=== PATIENT | female | born 1985 | race Caucasian/White ===

== ENCOUNTER 2016-04-24 07:09 | Emergency (ER) | payer OTHER ==
[2016-04-24 07:25] VITALS: BP 116/64
--- NOTE | 2016-04-24 07:29 | UC ---
Respiratory Complaint HPI - HPI Summary HPI Summary: chest congestion x 3 days , + nasal congestion , cough, no fever, no chills - History of Current Complaint Chief Complaint: UCGeneralIllness Stated Complaint: CHEST/SINUS CONGESTION Time Seen by Provider: 04/24/16 07:12 Hx Obtained From: Patient Hx Last Menstrual Period: Depo ?: No Onset/Duration: Gradual Onset, Lasting Days - 3, Still Present Timing: Constant Severity Initially: Moderate Severity Currently: Moderate Character: Cough: Nonproductive Aggravating Factors: Exertion, Deep Breaths Alleviating Factors: Nothing Associated Signs And Symptoms: Positive: URI, Nasal Congestion. Negative: Fever , Chills, Calf Pain - Allergies/Home Medications Allergies/Adverse Reactions: Allergies Allergy/AdvReac Type Severity Reaction Status Date / Time Erythromycin Allergy Severe N/V Verified 12/05/15 09:57 PMH/Surg Hx/FS Hx/Imm Hx Endocrine History Of: Denies: Diabetes, Thyroid Disease Cardiovascular History Of: Denies: Cardiac Disorders, Hypertension Respiratory History Of: Denies: COPD, Asthma GI/ History Of: Denies: Ulcer - Surgical History Surgical History: Yes Surgery Procedure, Year, and Place: LEEP - Family History Known Family History: Positive: Hypertension - Social History Alcohol Use: Occasionally Substance Use Type: None Smoking Status (MU): Former Smoker Type: Cigarettes Amount Used/How Often: 1 ppd Length of Time of Smoking/Using Tobacco: 10 years Have You Smoked in the Last Year: Yes When Did the Patient Quit Smoking/Using Tobacco: OCT 2015 Review of Systems Constitutional: Negative Skin: Negative Eyes: Negative ENT: Nasal Discharge Respiratory: Cough Cardiovascular: Negative Gastrointestinal: Negative Genitourinary: Negative All Other Systems Reviewed And Are Negative: Yes Physical Exam Triage Information Reviewed: Yes Appearance: Well-Appearing, No Pain Distress, Well-Nourished Vital Signs: Initial Vital Signs Temp 98.7 F 04/24/16 07:14 Pulse 66 04/24/16 07:14 Resp 16 04/24/16 07:14 BP 116/64 04/24/16 07:14 Pulse Ox 99 04/24/16 07:14 Vital Signs Reviewed: Yes Eye Exam: Normal Eyes: Positive: Conjunctiva Clear ENT: Positive: Normal ENT inspection, Hearing grossly normal, Pharyngeal erythema, Nasal congestion, Nasal drainage, TMs normal Neck: Positive: Supple, Nontender, No Lymphadenopathy Respiratory: Positive: Chest non-tender, Lungs clear, Normal breath sounds, No respiratory distress Cardiovascular: Positive: RRR, No Murmur, Pulses Normal Abdominal Exam: Normal Skin Exam: Normal UC Diagnostic Evaluation - Laboratory O2 Sat by Pulse Oximetry: 99 Respiratory Course/Dx - Differential Dx/Diagnosis Provider Diagnoses: URI Discharge - Discharge Plan Condition: Stable Disposition: HOME Patient Education Materials: Upper Respiratory Infection (ED) Referrals: Non Staff,Doctor [Primary Care Provider] - If Needed
== END 2016-04-24 07:40 | disposition home or self-care (01) ==
LOC: UCCORT 07:09
DX: J06.9 Acute upper respiratory infection, unspecified (principal); Z88.1 Allergy status to other antibiotic agents; Z87.891 Personal history of nicotine dependence
CPT/HCPCS: 99211; G0463

== ENCOUNTER 2016-04-27 07:07 | Emergency (ER) | payer OTHER ==
--- NOTE | 2016-04-27 07:19 | UC ---
Throat Pain/Nasal Benito HPI - HPI Summary HPI Summary: The patient comes in today for: 1. Sore throat: Onset: 5 days ago (nasal stuffiness) and sore throat x 1 day. Palliative/provocative: Gargling of warm salt water. Quality: Sore Region: Throat. Severity: 08/27 Time: Constant. Associated symptoms: Fever: None. Rhinitis: None Body aches: Present Cough: None. * - History of Current Complaint Stated Complaint: SORE THROAT,ACHY Time Seen by Provider: 04/27/16 07:11 Hx Obtained From: Patient Hx Last Menstrual Period: DEPO ?: No - Allergies/Home Medications Allergies/Adverse Reactions: Allergies Allergy/AdvReac Type Severity Reaction Status Date / Time Erythromycin Allergy Severe N/V Verified 04/27/16 07:31 PMH/Surg Hx/FS Hx/Imm Hx Previously Healthy: Yes Endocrine History Of: Denies: Diabetes, Thyroid Disease, Hyperthyroidism, Hypothyroidism, Dyslipidemia Cardiovascular History Of: Denies: Cardiac Disorders, Hypertension, Pacemaker/ICD, Myocardial Infarction , Congestive Heart Failure, Atrial Fibrillation, Deep Vein Thrombosis, Bleeding Disorders Respiratory History Of: Denies: COPD, Asthma, Bronchitis, Pneumonia, Pulmonary Embolism GI/ History Of: Denies: Gastroesophageal Reflux, Ulcer, Gastrointestinal Bleed, Gall Bladder Disease, Kidney Stones, Diverticulitis, Renal Disease, Urosepsis Neurological History Of: Denies: TIA, CVA, Dementia, Seizures, Migraine Psychological History Of: Denies: Anxiety, Depression, Bipolar Disorder, Schizophrenia, Post Traumatic Stress Disorder Cancer History Of: Denies: Lung Cancer, Colorectal Cancer, Breast Cancer, Prostate Cancer, Cervical Cancer Other History Of: Negative For: HIV, Hepatitis B, Hepatitis C, Anticoagulant Therapy - Surgical History Surgical History: Yes Surgery Procedure, Year, and Place: LEEP - Family History Known Family History: Positive: Hypertension Negative: Cardiac Disease - Social History Occupation: Employed Full-time Alcohol Use: Occasionally Substance Use Type: None Smoking Status (MU): Former Smoker Type: Cigarettes Amount Used/How Often: 1 ppd Length of Time of Smoking/Using Tobacco: 10 years Have You Smoked in the Last Year: Yes When Did the Patient Quit Smoking/Using Tobacco: OCT 2015 Review of Systems Constitutional: Negative Skin: Negative Eyes: Negative ENT: Sore Throat, Ear Ache - They are "popping a lot." Respiratory: Negative Cardiovascular: Negative Gastrointestinal: Negative Genitourinary: Negative All Other Systems Reviewed And Are Negative: Yes Physical Exam Triage Information Reviewed: Yes Appearance: Well-Appearing, No Pain Distress, Well-Nourished Vital Signs Reviewed: Yes Eyes: Positive: Conjunctiva Clear, Discharge ENT: Positive: Hearing grossly normal, Other: - No ulcerations seen in the posterior pharynx.. Negative: Pharyngeal erythema, Nasal congestion, Nasal drainage, TM bulging, TM dull, TM red, Tonsillar swelling, Tonsillar exudate Dental: Negative: Gross Decay/Caries @, Dental Fracture @ Neck: Positive: Supple, Nontender, No Lymphadenopathy. Negative: Nuchal Rigidity Respiratory: Positive: Lungs clear, No respiratory distress, No accessory muscle use. Negative: Crackles, Wheezing Cardiovascular: Positive: RRR, No Murmur Abdomen Description: Positive: Nontender, No Organomegaly, Soft. Negative: Distended, Guarding Musculoskeletal: Positive: Strength Intact, ROM Intact, No Edema Neurological: Positive: Alert, Muscle Tone Normal Psychological: Positive: Age Appropriate Behavior, Consolable Skin: Negative: rashes, breakdown Diagnostics - Laboratory Diagnostic Studies Completed/Ordered: Strep test: (-) Throat Pain/Nasal Course/Dx - Course Assessment/Plan: Patient was told of the negative strep test and her treatment options. However, treatment options were mentioned. She only wanted treatment with OTC medications. - Differential Dx/Diagnosis Provider Diagnoses: Viral pharyngitis Discharge - Discharge Plan Condition: Stable Disposition: HOME Patient Education Materials: Pharyngitis (ED) Referrals: Non Staff,Doctor [Primary Care Provider] - (Please see your primary care provider in about a week to see how well you are doing. If you get worse, please be seen sooner.)
[2016-04-27 07:59] VITALS: BP 107/63
== END 2016-04-27 08:05 | disposition home or self-care (01) ==
LOC: UCCORT 07:07
DX: J02.9 Acute pharyngitis, unspecified (principal); Z87.891 Personal history of nicotine dependence; Z88.1 Allergy status to other antibiotic agents
CPT/HCPCS: 87651; 99211; G0463

== ENCOUNTER 2016-07-22 15:29 | Emergency (ER) | payer OTHER ==
[2016-07-22 15:44] VITALS: BP 109/60
--- NOTE | 2016-07-22 16:52 | UC ---
Shoulder Pain HPI - HPI Summary HPI Summary: PATIENT PRESENTS TO WITH CC OF RIGHT SHOULDER PAIN WHICH RADIATES UP THE RIGHT SIDE OF THE NECK. 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 SHE NOTES TO TWISTING AND PULLING THE MUSCLES OVER THE RIGHT SHOULDER. SHE HAS INJURED THE AREA BEFORE AND NOTE TO PREVIOUS INCIDENCES OF MUSCLE STRAINS AND BACK PAIN. DENIES MIDLINE CERVICAL TENDERNESS. PAIN WAS WORST AFTER AWAKING FROM A [employer] AND SHE NOTES TO LIMITED MOVEMENT OF THE SHOULDER AND NECK D/T TIGHTNESS AND PAIN. DENIES NUMBNESS, TINGLING, COLOR OR TEMPERATURE CHANGES. PATIENT IS ON THE DEPO SHOT, BUT DENIES OTHER MEDICATIONS. RECENTLY QUIT SMOKING. DENIES HISTORY OF HERNIATED DISCS OR BACK SURGERIES. - History of Current Complaint Chief Complaint: UCBackPain Stated Complaint: BACK PAIN Time Seen by Provider: 07/22/16 16:29 Hx Obtained From: Patient Hx Last Menstrual Period: depo ?: No Onset/Duration: Sudden Onset Timing: Constant Severity Initially: Moderate Severity Currently: Moderate Location Of Pain: Is Diffuse - RIGHT SHOULDER RADIATING TO THE RIGHT SIDE OF THE NECK Pain Intensity: 5 Pain Scale Used: 0-10 Numeric Character: Aching, Throbbing, Spasmodic, Stiffness Aggravating Factor(s): Movement, Lifting, Internal Rotation, External Rotation Alleviating Factor(s): Rest Associated Signs And Symptoms: Positive: Negative Related History: Dominant Hand Right - Risk Factors Non-Orthopedic Risk Factor: Negative DVT Risk Factors: Negative Septic Arthritis Risk Factor: Negative - Allergies/Home Medications Allergies/Adverse Reactions: Allergies Allergy/AdvReac Type Severity Reaction Status Date / Time Erythromycin Allergy Severe N/V Verified 07/22/16 15:49 PMH/Surg Hx/FS Hx/Imm Hx Previously Healthy: Yes Other History Of: Negative For: HIV, Hepatitis B, Hepatitis C, Anticoagulant Therapy - Surgical History Surgical History: Yes Surgery Procedure, Year, and Place: LEEP - Family History Known Family History: Positive: Hypertension Negative: Cardiac Disease - Social History Occupation: Employed Full-time Lives: With Family Alcohol Use: Occasionally Substance Use Type: None Smoking Status (MU): Former Smoker Type: Cigarettes Amount Used/How Often: 1 ppd Length of Time of Smoking/Using Tobacco: 10 years Have You Smoked in the Last Year: Yes When Did the Patient Quit Smoking/Using Tobacco: OCT 2015 Review of Systems Constitutional: Negative Skin: Negative Respiratory: Negative Cardiovascular: Negative Genitourinary: Negative Motor: Decreased ROM Neurovascular: Negative Musculoskeletal: Arthralgia - RIGHT SHOULDER PAIN Neurological: Negative Psychological: Negative All Other Systems Reviewed And Are Negative: Yes Physical Exam Triage Information Reviewed: Yes Appearance: Well-Appearing, No Pain Distress, Well-Nourished Vital Signs: Initial Vital Signs Temp 99.0 F 07/22/16 15:41 Pulse 56 07/22/16 15:41 Resp 18 07/22/16 15:41 BP 109/60 07/22/16 15:41 Pulse Ox 99 07/22/16 15:41 Eye Exam: Normal Eyes: Positive: Conjunctiva Clear Neck exam: Normal Neck: Positive: Supple, Nontender, No Lymphadenopathy Respiratory Exam: Normal Respiratory: Positive: Chest non-tender, Lungs clear Cardiovascular Exam: Normal Cardiovascular: Positive: RRR Musculoskeletal Exam: Normal Musculoskeletal: Positive: No Edema, ROM Limited @ - PAIN WITH RIGHT SHOULDER ABDUCTION Neurological Exam: Normal Neurological: Positive: Alert, Muscle Tone Normal Psychological: Positive: Normal Response To Family Skin Exam: Normal Shoulder Course/Dx - Course Course Of Treatment: D/T HISTORY OF INJURY AND NO MIDLINE CERVICAL TENDERNESS, NO XRAY WAS COMPLETED. PATIENT NOTES TO MUSCLE PAIN IN THE RIGHT SHOULDER BLADE WHICH RADIATES TO THE RIGHT SIDE OF THE BASE OF THE NECK. DENIES OTHER PAIN. PATIENT HAS A HISTORY OF MUSCLE ACHES AND SPASMS. FLEXIRIL GIVEN FOR MUSCLE SPASMS, ENCOURAGED IBUPROFEN 600MG THREE TIMES DAILY AND MOIST HEAT TO THE AREA. PATIENT WILL RETURN IF SYMPTOMS WORSEN. NOTE GIVEN FOR WOK. - Differential Dx/Diagnosis Differential Diagnosis/HQI/PQRI: Fracture (Closed), Fracture (Open), Sprain, Strain Provider Diagnoses: RIGHT SHOULDER STRAIN Discharge - Discharge Plan Condition: Stable Disposition: HOME Prescriptions: Cyclobenzaprine TAB* [Flexeril TAB*] 10 mg PO BID PRN #10 tab MDD 2 PRN Reason: Pain Patient Education Materials: Muscle Strain (ED) Forms: *Work Release Referrals: No Primary Care Phys,NOPCP [Primary Care Provider] - Additional Instructions: TAKE 600MG THREE TIMES DAILY IBUPROFEN MOIST HEAT TO THE AREA SEVERAL TIMES PER DAY MASSAGE HOT BATHS FLEXIRIL NEEDED FOR MUSCLE SPASMS
== END 2016-07-22 16:50 | disposition home or self-care (01) ==
LOC: UCEAST 15:29
DX: S46.911A Strain of unspecified muscle, fascia and tendon at shoulder and upper arm level, right arm, initial encounter (principal); X50.3XXA Overexertion from repetitive movements, initial encounter; X50.0XXA Overexertion from strenuous movement or load, initial encounter; Y93.H2 Activity, gardening and landscaping; Y92.9 Unspecified place or not applicable; Y99.9 Unspecified external cause status; Z87.891 Personal history of nicotine dependence
CPT/HCPCS: 99212; G0463

== ENCOUNTER 2016-10-29 10:48 | Day surgery (SDC) | payer OTHER ==
--- NOTE | 2016-10-23 22:05 | HP ---
PREOPERATIVE HISTORY AND PHYSICAL: DATE OF ADMISSION/SURGERY: 10/29/16 [facility] DATE OF OFFICE VISIT: 10/23/16 ATTENDING SURGEON: Dr. Filippo Rodriguez * (DICTATED BY HIREN BANUELOS) PROCEDURE: Right shoulder arthroscopic labral repair, possible subpectoral biceps tenodesis. CHIEF COMPLAINT: Right shoulder pain. HISTORY OF PRESENT ILLNESS: Zenaida is a 31-year-old female, who presents to the clinic for right shoulder pain and instability for several years. She states she has dislocated it over 20 times. She has failed conservative measures and has therefore agreed to undergo a right shoulder arthroscopic labral repair, possible subpectoral biceps tenodesis with Dr. Barkley on 10/29/16. PAST MEDICAL HISTORY: Denies current problems. PAST SURGICAL HISTORY: LEEP and breast implants. Denies prior complications with anesthesia. MEDICATIONS: Depo-Provera 150 mg/mL every 3 months. ALLERGIES: ERYTHROMYCIN. FAMILY HISTORY: Diabetes, hypertension, and cancer. Denies family history of DVT or PE. SOCIAL HISTORY: The patient lives alone. 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 She is a former smoker. She quit in October of 2015. She reports occasional alcohol consumption. She denies illegal drug use. REVIEW OF SYSTEMS: General: Negative for fevers, chills, night sweats. No known anesthesia problems. HEENT: Negative for headache, lightheadedness, or syncopal episodes. Integumentary: Negative for abrasions, lesions, or open wounds. Cardiothoracic: Negative for chest pain, palpitations, or hypertension. Pulmonary: Negative for shortness of breath with exertion, chronic cough, or COPD. GI: Negative for nausea, vomiting, diarrhea, constipation, or GERD. : Negative for nocturia, history of UTIs, or kidney problems. Musculoskeletal: Positive for current complaint. Neuro: Negative for numbness, tingling, history of seizure, stroke, or epilepsy. Endocrine: Negative for diabetes or thyroid issues. Heme: Negative for easy bruising, history of bleeding disorder, or history of DVT or PE. Infectious Disease: Negative for history of MRSA, hep C, or HIV. PHYSICAL EXAMINATION GENERAL: Well-developed, well-nourished, 31-year-old female, in no acute distress. Alert and oriented x3 with appropriate mood and affect. VITAL SIGNS: Height 64, weight , pulse 86, blood pressure 114/76, respiratory rate 16, temperature 98, BMI 27.6. HEENT: Normocephalic, atraumatic. PERRLA. NECK: Supple. Throat clear. PULMONARY: Lungs clear to auscultation bilaterally. No wheezing, rhonchi, or rales. CARDIO: Regular rate and rhythm, S1 and S2. No murmurs, gallops, or rubs. No edema. ABDOMEN: Positive bowel sounds, soft, nontender. NEURO: Alert and oriented x3. Cranial nerves grossly intact. Sensation is intact to light touch. MUSCULOSKELETAL: Right upper extremity: Skin is intact. No warmth or erythema , nontender to palpation. Forward flexion and abduction to 180, external rotation to 65, internal rotation to T8. +5/5 strength on rotator cuff testing. Positive apprehension, relocation test. +2 anterior shift with guarding. +2 radial pulses. Sensation intact to light touch distally. DIAGNOSTIC STUDIES: MR arthrogram of the right shoulder revealed an absent anterior labrum. The rotator cuff is intact. IMPRESSION: Right shoulder labral tear. PLAN: The patient is scheduled to undergo a right shoulder arthroscopic labral repair, possible subpectoral biceps tenodesis with Dr. Rodriguez on 10/29/16. She will return to the office 10 to 14 days postop for followup and suture removal. Percocet will be used for a postoperative pain management and Keflex for antibiotic prophylaxis. HIREN BANUELOS [id number]/[facility] #: [id number] [facility]
[~2016-10-29 10:48] MED LIST: Buffered Lidocaine 0.9% SYRIN* 5 ML/SYR SYRINGE INTRADERM ONE; Famotidine IV* 10 MG/ML 2 ML (20 mg) IV ONE; Morphine INJ* 2 MG/ML 1 ML CARPUJECT IV PRN; PROCHLORPERAZINE INJ 5 MG/ML 2 ML VIAL IV PRN; Scopolamine 1.5 mg* PATCH TRANSDERM PRN; fentaNYL* 50 MCG/ML 2 ML VIAL (100 MCG VIAL) IV PRN; oxyCODONE/Acetamin 5/325 MG* TAB PO PRN
[2016-10-29] MEDS ORDERED: Midazolam* 1 MG/ML 5 ML VIAL (5 MG) ONE (10:56)
[2016-10-29] MEDS ORDERED: KETAMINE HCL* 50 MG/ML 10 ML VIAL ONE (10:56)
[2016-10-29] MEDS ORDERED: fentaNYL* 50 MCG/ML 2 ML VIAL (100 MCG VIAL) ONE ×2 (10:56→14:37)
[2016-10-29] MEDS ORDERED: Famotidine IV* 10 MG/ML 2 ML (20 mg) ONE (11:09)
[2016-10-29] MEDS ORDERED: ceFAZolin 2 GM PREMIX (*) 50 ML IVPB ONE (11:09)
[2016-10-29] MEDS ORDERED: Bupivacaine 0.25% SDV* 30 ML ONE ×2 (12:42→13:18)
[2016-10-29] MEDS ORDERED: methylPREDNISolone ACETATE 80* 80 MG/ML 1 ML VIAL ONE (12:43)
[2016-10-29] MEDS ORDERED: Dexamethasone IV* 4 MG/ML 1 ML (4 MG) ONE (13:51)
[2016-10-29] MEDS ORDERED: EPHEDrine (Pressors)* 50 MG/ML VIAL ONE (13:51)
[2016-10-29] MEDS ORDERED: Propofol* 10 MG/ML 20 ML BTL IV PUSH ONE (13:51)
[2016-10-29] MEDS ORDERED: Ketorolac INJ* 30 MG/ML 1 ML VIAL ONE (13:51)
[2016-10-29] MEDS ORDERED: Ondansetron INJ* 2 MG/ML VIAL ONE (13:51)
[2016-10-29] MEDS ORDERED: Lidocaine 2% PF * 5 ML VIAL ONE (13:51)
[2016-10-29] MEDS ORDERED: oxyCODONE/Acetamin 5/325 MG* TAB ONE (15:44)
[2016-10-29 16:15] VITALS: BP 127/66
--- NOTE | 2016-10-30 11:28 | OP ---
CC: PCP, Coty Fontanez NP * DATE OF OPERATION: 10/29/16 - [facility] DATE OF : 83 ATTENDING SURGEON: Filippo Rodriguez MD. SKEIN YARN DRIER: HIREN Eisenberg. Repair Electric Motor Assembler was needed for the entirety of the case to help with positioning, retraction, and utilized throughout all portions of the case. ANESTHESIOLOGIST: Dr. Juan C Gutierrez. ANESTHESIA: General interscalene block. PRE-OP DIAGNOSIS: Right shoulder instability. POST-OP DIAGNOSIS: Right shoulder instability. OPERATIVE PROCEDURE: Right shoulder arthroscopy with: 1. Extensive glenohumeral debridement including chondroplasty as well as debridement of the rotator cuff. 2. Removal of loose body x3 greater than 5 mm. 3. Anterior labral repair. 4. Subpectoral biceps tenodesis. IMPLANTS: Four 2.9 Bioraptors and one 2.8 mm Q-Fix. INDICATIONS: Zenaida Wilson is a 31-year-old female who has had reportedly 20 dislocations at least. She has failed conservative management. She did not seek medical treatment and has persistent instability. 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 She has pain with this now. Risks and benefits were discussed at length, included but not limited to bleeding, infection, damage to nerves, vessels, surrounding structures, wound nonhealing, persistent pain, need for further surgery, scaring, stiffness, incomplete relief of symptoms, need for further surgery, failure of the repair with recurrent instability, and risk of DVT. She is well aware that she has dislocated so many times and it is hard to say how well she would do from this simple arthroscopic procedure. We also discussed the fact that her arthrogram demonstrates that the anterior labrum was completely displaced and almost nonexistent superiorly. She verbalized understanding. DESCRIPTION OF PROCEDURE: The patient was greeted in the preoperative area by the attending surgeon. Correct extremity was marked, consent was confirmed. The patient then underwent interscalene nerve block with the anesthesiologist which she tolerated without difficulty after which the patient was brought back to the operating suite where she was placed in the supine position on the operating room tablet and then underwent general anesthesia with LMA intubation. The patient was then positioned in a left lateral decubitus position. She was secured with a peg board as well as a small axillary roll that was taped. All bony prominences were padded. The right arm was draped unsterile with 10 pounds of traction. The right shoulder was prepped and draped in the usual sterile fashion beginning with chlorhexidine soap, scrub, and alcohol wipe and final prep with ChloraPrep. After appropriate surgical pause indicating site, side, procedure, and administration of antibiotics a posterolateral portal was made using an 11 blade. Scope was introduced into the joint and the joint was examined. There was abundant hyperemia and inflammation of the biceps, had evidence of subluxation of the superior labrum. The labrum was missing from the 1 o'clock to the 6 o'clock position. It was completely not apparent. The shoulder was sitting subluxed. There was a moderate Hill-Sachs lesion. There were multiple loose bodies, at least 3 of them almost 1 cm. These were sitting in the inferior recess. The subscapularis was completely exposed. The capsule had been stretched significantly anteriorly. The posterior labrum had mild unstable fraying. The undersurface of the supraspinatus was intact with mild fraying. The subscapularis had partial thickness tearing. The lower anterior portal was made first using an 18 gauge needle for localization, and then an 8 mm cannula was placed, then a second cannula was placed more superiorly in the interval. At this point the biceps was evaluated and the superior labrum was also torn and decision was made to tenotomize this and do a tenodesis. This was then sharply tenotomized using scissors. The shaver was brought into to help debride back a small amount of fraying from the posterior labrum as well as the subscapularis. At this point there were multiple loose bodies that are identified. These were then removed with graspers as well as emmanuel. When the vast majority were removed attention was directed to the labrum. Also of note the anterior recess was intact. There were grade 1 to 2 changes of the glenoid with mild fraying. These were then debrided back using the shaver for chondroplasty. The Hill-Sachs lesion was identified. It was a large lesion, but it was not very deep. There were grade 4 changes at at the Hill-Sachs lesion. Once the debridement was complete, attention was directed to the labrum. The labrum was prepared in the usual fashion with red ball rasp, the shaver to help create a bony bleeding edge at the glenoid. The soft tissues were carefully evaluated. A 70 degree scope was used to help visualize. Most of the labrum was nonexistent. Some capsule was scarred into what may have been labrum very inferiorly. Care was taken to try to be able to re- create that and bring that back to the glenoid. Although it would not re-create the entire anterior aspect of the labrum, it was able to be reapproximated to about the 3 o 'clock position. At this point after the labrum had been prepared and the capsule had been rasped, anchors began to be placed. Beginning at the 5:30 position the anchor was placed with excellent purchase. The sutures were passed using the passing device in a horizontal mattress fashion with care to grab the capsule as well as the labrum which was somewhat difficult due to this being completely displaced. Once this was brought back this was then tied down using arthroscopic knot tying which did help reapproximate the most inferior portion of the labrum. This also allowed for an inferior to superior capsular shift. A second anchor was placed at the 4:30 position and in a similar fashion horizontal mattress configuration; this again helped restore some of the capsulolabral junction. The labrum did not look normal by any means, it was a very inflamed, irritated tissue. At this point, a 3rd anchor was placed in the 3:30 position, passed in a simple configuration. At this point, the capsule and the labrum was much more diminutive, but it still helped restore some of the shift and then a last anchor was placed around 2:30 to try to grab as much of the capsule as possible. This was also quite diminutive. After the anchors were placed, the shoulder was examined and it was found to sit more centrally located. It helped restore as normal anatomic alignment as she could have given her poor structures. At this point final images were obtained. All fluid and debris were removed from the joint. Attention was directed to the biceps. The bed was airplaned to the right side. The anterior aspect of the shoulder was reprepped again using ChloraPrep. A 15 blade was used to make an incision in line with the biceps accompanying the inferior two-thirds of the pec. The soft tissues were carefully dissected using Metzenbaum. Electrocautery was used to maintain hemostasis. The fascia was identified. The remainder of the dissection was done bluntly. The pec was elevated superiorly with a [place] blade and the biceps groove was palpated. A small cristobal in the biceps facia was then made and the biceps was brought through the wound. There was abundant synovitis that was present. At this point, the groove was prepared in the usual fashion beginning with electrocautery, ball rasp, as well as osteotome to allow for good bony bleeding bed. A Q-Fix anchor drill guide was used and drilled unicortically. The Q-Fix was deployed with excellent purchase. Sutures were passed through the biceps approximately 1 cm proximal to the musculotendinous junction. The excess stump then was excised and then the biceps was shuttled back to the wound and then tied down. The wounds were copiously irrigated with sterile saline. Portals were closed with 3-0 nylon. The anterior wound was closed in layers with 2-0 Vicryl and 3-0 Monocryl. Sterile dressings were applied. The anterior wound was injected with 0.25% Marcaine plain approximately 20 cc. Dressings, cryo cuff, and UltraSling were then applied. She was awoken from anesthesia and transferred to PACU in stable condition. POSTOPERATIVE PLAN: She will be nonweightbearing. She will be in a sling for approximately 6 weeks. She will be allowed range of motion with a therapist beginning at 4 weeks. She will be discharged with pain mediations as well as antibiotics. DVT prophylaxis was considered but deferred due to no previous personal or family history. I will see the patient back in 10 to 14 days. [id number]/[facility] #: [id number] NOHEMI
[2016-11-01] MEDS ORDERED: Scopolomine PATCH Remove* 1 NOTE MISC PATCH OFF ONE (05:49)
== END 2016-10-29 16:34 | disposition home or self-care (01) ==
LOC: OREAST 10:48
PROVIDERS: ATTEND Orthopaedic Surgery
DX: M25.311 Other instability, right shoulder (principal); M75.81 Other shoulder lesions, right shoulder; G89.18 Other acute postprocedural pain; Z88.1 Allergy status to other antibiotic agents; Z87.891 Personal history of nicotine dependence
CPT/HCPCS: 81025; A9270-GY; C1776; J0690; J1040; J1100; J1885; J2250; J2405; J2704; J3010

== ENCOUNTER 2017-11-02 19:14 | Emergency (ER) | payer OTHER ==
[2017-11-02 19:48] LABS: ABS Basophils 0.1 10^3/ul (0-0.2); ABS Eosinophils 0 10^3/ul (0-0.6); ABS Monocytes 0.4 10^3/ul (0-0.8); ABS Neutrophils 3.3 10^3/ul (1.5-7.7); ABS Nucleated RBC 0 10^3/ul; Eosinophil % 0.5 % (0-6); Hematocrit 44 % (35-47); Hemoglobin 14.8 g/dl (12.0-16.0); Lymphocyte % 44.2 % (25-47); Mean Corpuscular HGB Conc 34 g/dl (31-36); Mean Corpuscular Hemoglobin 30 pg (27-31); Mean Corpuscular Volume 90 fL (80-97); Mean Platelet Volume 7.4 um3 (7.4-10.4); Nucleated Red Blood Cells % 0.1; Platelet Count 245 10^3/ul (150-450); Red Blood Count 4.86 10^6/ul (4.00-5.40); Red Cell Distribution Width 13 % (10.5-15); White Blood Count 6.9 10^3/ul (3.5-10.8)
--- NOTE | 2017-11-02 20:01 | ED ---
Back Pain - HPI Summary HPI Summary: This patient is a 32 year old M presenting to [facility] with a chief complaint of bilateral lower back pain since 1 month ago. Patient notes the pain has worsened in the last 3 hours. Patient denies any direct injury to the area. The patient rates the pain 6/10 in severity. Symptoms aggravated by sitting. Symptoms alleviated by nothing. Patient reports nausea, dizziness, cramping abdominal pain, tremors, and loss of appetite. Patient denies changes in the skin, weakness in legs or feet, fever, dysuria, or hematuria. Patient notes that she has endometriosis. She says she stopped taking the Depo shot in February 2017 after being on it for 16 years. Patient notes she is currently on her period and that recently her period has been irregular, super heavy, dark, and many clots. Patient quit smoking 2 years ago. - History of Current Complaint Chief Complaint: EDFlankPain Stated Complaint: BACK PAIN/DIZZINESS Time Seen by Provider: 11/02/17 19:31 Hx Obtained From: Patient Hx Last Menstrual Period: depo Onset/Duration: Lasting Weeks, Still Present, Worse Since - 3 hours ago Onset/Duration: Started Weeks Ago, Atraumatic, Still Present, Worse Since - 3 hours ago Timing: Constant, Lasting Weeks Back Pain Location: Is Discrete @ - bilateral lower back Severity Initially: Mild Severity Currently: Mild Pain Intensity: 6 Pain Scale Used: 0-10 Numeric Aggravating Symptom(s): Other - sitting Alleviating Symptom(s): Nothing Associated Signs And Symptoms: Positive: Abdominal Pain - cramping, Flank Pain - bilateral. Negative: Fever, Weakness - Allergies/Home Medications Allergies/Adverse Reactions: Allergies Allergy/AdvReac Type Severity Reaction Status Date / Time erythromycin base Allergy Rash Verified 11/02/17 19:22 PMH/Surg Hx/FS Hx/Imm Hx Endocrine/Hematology History: Denies: Hx Anticoagulant Therapy, Hx Diabetes, Hx Thyroid Disease Cardiovascular History: Denies: Hx Congestive Heart Failure, Hx Deep Vein Thrombosis, Hx Hypertension , Hx Myocardial Infarction, Hx Pacemaker/ICD Respiratory History: Denies: Hx Asthma, Hx Chronic Obstructive Pulmonary Disease (COPD), Hx Lung Cancer, Hx Pneumonia, Hx Pulmonary Embolism GI History: Denies: Hx Gall Bladder Disease, Hx Gastrointestinal Bleed, Hx Ulcer, Hx Urosepsis History: Reports: Other Problems/Disorders - endometriosis Denies: Hx Kidney Stones, Hx Renal Disease Sensory History: Denies: Hx Contacts or Glasses, Hx Hearing Aid Opthamlomology History: Denies: Hx Contacts or Glasses Neurological History: Denies: Hx Dementia, Hx Migraine, Hx Seizures, Hx Transient Ischemic Attacks (TIA) Psychiatric History: Denies: Hx Anxiety, Hx Depression, Hx Panic Disorder, Hx Schizophrenia, Hx Bipolar Disorder - Surgical History Surgery Procedure, Year, and Place: [facility]. BILATERAL BREAST IMPLANTS [place] Hx Anesthesia Reactions: No Infectious Disease History: No Infectious Disease History: Reports: Hx Shingles - treated Denies: Hx Clostridium Difficile, Hx Hepatitis, Hx Human Immunodeficiency Virus (HIV), Hx of Known/Suspected MRSA, Hx Tuberculosis, Hx Known/Suspected VRE , Hx Known/Suspected VRSA, History Other Infectious Disease, Traveled Outside the [place] in Last 30 Days - Family History Known Family History: Positive: Hypertension Negative: Cardiac Disease - Social History Alcohol Use: Occasionally Substance Use Type: Reports: None Smoking Status (MU): Former Smoker Type: Cigarettes Amount Used/How Often: 1 ppd Length of Time of Smoking/Using Tobacco: 10 years Have You Smoked in the Last Year: No Review of Systems Negative: Fever Negative: Epistaxis Positive: Abdominal Pain - cramping pain, Nausea Positive: flank pain - bilateral lower back pain. Negative: dysuria, hematuria Negative: Rash Neurological: Other - positive dizziness Negative: Weakness - negative weakness in legs or feet All Other Systems Reviewed And Are Negative: Yes Physical Exam - Summary Physical Exam Summary: Appearance: Well-appearing, Well-nourished, lying in bed comfortably Skin: Warm, dry, no obvious rash Eyes: sclera anicteric, no conjunctival pallor ENT: mucous membranes moist, pharynx appears normal Neck: Supple, nontender Respiratory: Clear to auscultation, no signs of respiratory distress Cardiovascular: Normal S1, S2. No murmurs. Normal distal pulses in tibial and radial bilaterally. Abdomen: Soft, nontender, normal active bowel sounds present Musculoskeletal: Normal, Strength/ROM Intact and symmetric. No tenderness to palpation of back Neurological: A&Ox3, awake and alert, mentation is normal, speech is fluent and appropriate Psychiatric: affect is normal, does not appear anxious or depressed Triage Information Reviewed: Yes Vital Signs On Initial Exam: Initial Vitals Temp Pulse Resp BP Pulse Ox 98.7 F 73 16 109/61 98 11/02/17 19:15 18 19:15 18 19:15 11/02/17 19:15 11/02/17 19:15 Vital Signs Reviewed: Yes Diagnostics - Vital Signs Vital Signs Temp Pulse Resp BP Pulse Ox 11/02/17 19:15 98.7 F 73 16 109/61 98 - Laboratory Lab Results: Lab Results 11/02/17 Range/Units 19:38 WBC 6.9 (3.5-10.8) 10^3/ul RBC 4.86 (4.00-5.40) 10^6/ul Hgb 14.8 (12.0-16.0) g/dl Hct 44 (35-47) % MCV 90 (80-97) fL MCH 30 (27-31) pg MCHC 34 (31-36) g/dl RDW 13 (10.5-15) % Plt Count 245 (150-450) 10^3/ul MPV 7.4 (7.4-10.4) um3 Neut % (Auto) 48.3 (38-83) % Lymph % (Auto) 44.2 (25-47) % Wise % (Auto) 6.2 (0-7) % Eos % (Auto) 0.5 (0-6) % Baso % (Auto) 0.8 (0-2) % Absolute Neuts (auto) 3.3 (1.5-7.7) 10^3/ul Absolute Lymphs (auto) 3.0 (1.0-4.8) 10^3/ul Absolute Monos (auto) 0.4 (0-0.8) 10^3/ul Absolute Eos (auto) 0 (0-0.6) 10^3/ul Absolute Basos (auto) 0.1 (0-0.2) 10^3/ul Absolute Nucleated RBC 0 10^3/ul Nucleated RBC % 0.1 Result Diagrams: 11/02/17 19:38 11/02/17 19:38 Lab Statement: Any lab studies that have been ordered have been reviewed, and results considered in the medical decision making process. - Additional Comments Diagnostic Additional Comments: Pelvis US Interpreted by radiologist. Impression: normal pelvic ultrasound Dr. Griffith has reviewed this report. Back Pain Course/Dx - Diagnoses Provider Diagnoses: Endometriosis Discharge - Sign-Out/Discharge Documenting (check all that apply): Patient Departure - Discharge Plan Condition: Stable Disposition: HOME Prescriptions: Norethindrone AC-Eth Estradiol [Loestrin 21 1-20 Tablet] 1 each PO DAILY #1 vannessa Patient Education Materials: Endometriosis (ED) Referrals: Coty Fontanez NP [Primary Care Provider] - Additional Instructions: I suspect your back pain is related to a recurrence of your endometriosis. Your blood tests and pelvic US were all ok. You did well on hormonal suppression in the past so it would be reasonable to try control pills as a start now, but f/u with your job coach/job developer will be important given the chronic nature of this illness. - Billing Disposition and Condition Condition: STABLE Disposition: Home - Attestation Statements Document Initiated by Nay: Yes Documenting Scribe: Dara Pizarro Provider For Whom Nay is Documenting (Include Credential): Earl Griffith MD Scribe Attestation: Dara Youssef, scribed for Earl Griffith MD on 11/02/17 at 2317. Scribe Documentation Reviewed: Yes Provider Attestation: The documentation as recorded by the scribe, Dara Pizarro accurately reflects the service I personally performed and the decisions made by me, Earl Griffith MD
[2017-11-02 20:06] LABS: Urine Appearance Clear; Urine Blood 1+ (Negative); Urine Color Straw; Urine Ketones Negative (Negative); Urine Protein Negative (Negative); Urine Red Blood Cell Trace(0-2/hpf) (Absent); Urine Specific Gravity 1.006 (1.010-1.030); Urine Urobilinogen Negative (Negative); Urine White Blood Cell Trace(0-5/hpf) (Absent)
--- NOTE | 2017-11-02 22:30 | RAD ---
EXAM: US Pelvis Complete, Transabdominal CLINICAL HISTORY: 32 years old, female; Pain; Abdominal pain; Lower abdomen; Additional info: Pelvic/back pain, h/o endometriosis TECHNIQUE: Real-time transabdominal pelvic ultrasound (complete) with image documentation. COMPARISON: No relevant prior studies available. FINDINGS: Uterus/cervix: Uterus measures 7.9 x 3.7 x 4.2 cm. Endometrial stripe measures 3.3 mm. No myometrial mass. Right ovary: Right ovary measures 3.7 x 2.4 x 2.1 cm. Normal blood flow. Left ovary: Left ovary measures 3.9 x 1.6 x 2.7 cm. Normal blood flow. Free fluid: No free fluid. Bladder: Unremarkable as visualized. Wall is normal thickness for degree of distention. IMPRESSION: 1. Normal pelvic ultrasound.
[2017-11-02 22:53] VITALS: BP 112/66
== END 2017-11-02 22:51 | disposition home or self-care (01) ==
LOC: ED 19:14
CPT/HCPCS: 36415; 76856; 80053; 81003; 81015; 83690; 84702; 85025; 87086

== ENCOUNTER 2017-12-29 09:33 | Emergency (ER) | payer OTHER ==
[2017-12-29 09:41] VITALS: BP 122/75
--- NOTE | 2017-12-29 10:24 | UC ---
Complaint Female HPI - HPI Summary HPI Summary: c/o vaginal irritation for the past 4 days, took diflucan 100mg po daily x3 and topical clotrimazole without relief. She states she has some concern for std's ' its possible' and that she noticed malodorous vaginal d/c, she is currently spotting as she resumed depoprovera injections in October after a lapse of several months. states she has been on Depo for the past 14 years due to endometriosis. She states she had a LEEP procedure - History Of Current Complaint Chief Complaint: UCGU Stated Complaint: PERSONAL Time Seen by Provider: 12/29/17 09:56 Hx Obtained From: Patient Hx Last Menstrual Period: 11/02/17 ?: No Onset/Duration: Sudden Onset, Lasting Days Timing: Constant Severity Initially: Mild Severity Currently: Moderate Pain Intensity: 6 Character: Burning Aggravating Factor(s): Urination Alleviating Factor(s): Nothing Associated Signs And Symptoms: Positive: Vaginal Bleeding/Discharge - Risk Factors Ectopic Risk Factor: Negative Ovarian Torsion Risk Factor: Negative - Allergies/Home Medications Allergies/Adverse Reactions: Allergies Allergy/AdvReac Type Severity Reaction Status Date / Time erythromycin base Allergy Rash Verified 12/29/17 09:41 PMH/Surg Hx/FS Hx/Imm Hx - Additional Past Medical History Additional PMH: endometriosis Previously Healthy: Yes Other History Of: Negative For: HIV, Hepatitis B, Hepatitis C, Anticoagulant Therapy - Surgical History Surgical History: None Surgery Procedure, Year, and Place: LEEP [facility]. BILATERAL BREAST IMPLANTS [place] - Family History Known Family History: Positive: Hypertension Negative: Cardiac Disease - Social History Alcohol Use: Occasionally Substance Use Type: None Smoking Status (MU): Former Smoker Type: Cigarettes Amount Used/How Often: 1 ppd Length of Time of Smoking/Using Tobacco: 10 years Have You Smoked in the Last Year: No When Did the Patient Quit Smoking/Using Tobacco: OCT 2015 Review of Systems All Other Systems Reviewed And Are Negative: Yes Genitourinary: Positive: Vaginal/Penile Discharge Physical Exam Triage Information Reviewed: Yes Appearance: Well-Appearing, No Pain Distress, Well-Nourished Vital Signs: Initial Vital Signs Temp 97 F 12/29/17 09:38 Pulse 80 12/29/17 09:38 Resp 16 12/29/17 09:38 BP 122/75 12/29/17 09:38 Pulse Ox 100 12/29/17 09:38 Vital Signs Reviewed: Yes Eyes: Positive: Conjunctiva Clear ENT: Positive: Hearing grossly normal, Pharynx normal Neck: Positive: Supple, Nontender, No Lymphadenopathy Respiratory: Positive: Chest non-tender, Lungs clear, Normal breath sounds, No respiratory distress Cardiovascular: Positive: RRR, No Murmur, Pulses Normal, Brisk Capillary Refill Abdomen Description: Positive: Nontender, No Organomegaly, Soft Pelvic Exam: Positive: Bimanual Exam Normal, No Cerv. Motion Tender, No Masses, Active Bleeding, Other - erythematous vulva. Cervix s/p LEEP procedure, medial tissue ablated, endocervix visible Skin Exam: Normal Complaint Female Dx - Course Course Of Treatment: patient with persistent vulvitis after treatment for frank vv, will start lotrisone cream and empiric treatment for BV, results for gc/chl and Trich/cand/gardnerella pending. F/u with PCP /restrooms or lounges maid in 1 week. - Differential Dx/Diagnosis Provider Diagnoses: Vulvovaginitis Discharge - Sign-Out/Discharge Documenting (check all that apply): Patient Departure All imaging exams completed and their final reports reviewed: No Studies - Discharge Plan Condition: Stable Disposition: HOME Patient Education Materials: Vaginitis (ED), Betamethasone/Clotrimazole (On the skin), Metronidazole (By mouth) Referrals: Coty Fontanez NP [Primary Care Provider] - - Billing Disposition and Condition Condition: STABLE Disposition: Home
--- NOTE | 2017-12-30 18:53 | UC ---
- Progress Note Progress Note: 12/30/2017 Vaginal samples positive forNegative Dahlia and positive Gardnerella Pt Rx Metronidazole topical vaginal cream. No change Reina Garland PA-C Discharge - Sign-Out/Discharge Documenting (check all that apply): Patient Departure - D/C home All imaging exams completed and their final reports reviewed: No Studies - Discharge Plan Condition: Stable Disposition: HOME Prescriptions: Clotrimazole/Betamethasone* [Lotrisone Cream*] 1 applic TOPICAL BID 7 Days #1 tube metroNIDAZOLE [Flagyl] 500 mg PO TID 7 Days #21 tablet Patient Education Materials: Betamethasone/Clotrimazole (On the skin), Metronidazole (By mouth), Vaginitis (ED) Referrals: Coty Fontanez NP [Primary Care Provider] - - Billing Disposition and Condition Condition: STABLE Disposition: Home
== END 2017-12-29 11:00 | disposition home or self-care (01) ==
LOC: UCEAST 09:33
DX: N76.0 Acute vaginitis (principal); Z88.1 Allergy status to other antibiotic agents; Z87.891 Personal history of nicotine dependence
CPT/HCPCS: 87480; 87491; 87510; 87591; 87661; 99212; G0463

== ENCOUNTER 2018-02-06 13:20 | Emergency (ER) | payer SELFPAY ==
[2018-02-06 13:34] VITALS: BP 143/68
--- NOTE | 2018-02-06 13:53 | UC ---
Complaint Female HPI - HPI Summary HPI Summary: Started w/ vaginal irritation and burning yesterday. Has noted some discharge as well. Denies dyspareunia. ON depo. Of note was seen last month here and tx'd for BV. - History Of Current Complaint Chief Complaint: UCGU Stated Complaint: BURNING URINATION Time Seen by Provider: 02/06/18 13:25 Hx Obtained From: Patient Hx Last Menstrual Period: pt on depo and states not getting a menses ?: No - depo Onset/Duration: Sudden Onset Timing: Constant Severity Initially: Moderate Severity Currently: Mild Pain Intensity: 5 Pain Scale Used: 0-10 Numeric Aggravating Factor(s): Urination, Other - touch Associated Signs And Symptoms: Positive: Vaginal Discharge. Negative: Vaginal Bleeding/Discharge, Nausea, Genital Swelling - Allergies/Home Medications Allergies/Adverse Reactions: Allergies Allergy/AdvReac Type Severity Reaction Status Date / Time erythromycin base AdvReac Vomiting Verified 02/06/18 13:34 Home Medications: Home Medications Medroxyprogesterone Acetate [Depo-Provera Contraceptiv] 150 mg IM MONTHLY [History Confirmed 02/06/18] PMH/Surg Hx/FS Hx/Imm Hx Previously Healthy: Yes Other History Of: Negative For: HIV, Hepatitis B, Hepatitis C, Anticoagulant Therapy - Surgical History Surgical History: Yes Surgery Procedure, Year, and Place: [facility]. BILATERAL BREAST IMPLANTS [place] - Family History Known Family History: Positive: Hypertension Negative: Cardiac Disease - Social History Alcohol Use: Rare Substance Use Type: None Smoking Status (MU): Former Smoker Type: Cigarettes Amount Used/How Often: 1 ppd Length of Time of Smoking/Using Tobacco: 10 years Have You Smoked in the Last Year: No When Did the Patient Quit Smoking/Using Tobacco: OCT 2015 Review of Systems All Other Systems Reviewed And Are Negative: Yes Constitutional: Positive: Negative Skin: Positive: Negative Genitourinary: Positive: Dysuria, Vaginal/Penile Burning, Vaginal/Penile Itching , Vaginal/Penile Discharge, Vaginal/Penile Pain, Vaginal/Penile Tenderness. Negative: Hematuria, Frequency, Urgency Physical Exam Triage Information Reviewed: Yes Vital Signs: Initial Vital Signs Temp 99.2 F 02/06/18 13:26 Pulse 71 02/06/18 13:26 Resp 14 02/06/18 13:26 BP 143/68 02/06/18 13:26 Pulse Ox 100 02/06/18 13:26 Vital Signs Reviewed: Yes Pelvic Exam: Positive: Discharge - thin, whitish, Lesions - vesicles at R lower introitus. Negative: Active Bleeding, Cervicitis, Ulcers Complaint Female Dx - Course Course Of Treatment: Symptoms consistent w/ herpetic outbreak along w/ presumed BV. Will send out for testing and tx BV. Also tx'ing first outbreak of herpes. Advised condom use. UA unremarkable, urine hcg neg today. Will await testing and tx accordingly. - Differential Dx/Diagnosis Differential Diagnosis/HQI/PQRI: Sexually Transmitted Disease, Urinary Tract Infection, Other Provider Diagnosis: Herpes genitalis in women, Bacterial vaginosis Discharge - Sign-Out/Discharge Documenting (check all that apply): Patient Departure All imaging exams completed and their final reports reviewed: No Studies - Discharge Plan Condition: Good Disposition: HOME Prescriptions: Acyclovir [Zovirax] 400 mg PO TID 7 Days #21 tab metroNIDAZOLE VAGINAL 0.75%* 1 applic VAGINAL BEDTIME 7 Days #1 tube Patient Education Materials: Genital Herpes Simplex (ED) Referrals: Coty Fontanez NP [Primary Care Provider] - Additional Instructions: If another outbreak occurs please see your primary care for possible change in medication - Billing Disposition and Condition Condition: GOOD Disposition: Home
--- NOTE | 2018-02-07 16:06 | UC ---
- Progress Note Progress Note: Positive BV Pt treated at office visit No change Course/Dx - Diagnoses Provider Diagnoses: Herpes genitalis in women, Bacterial vaginosis Discharge - Sign-Out/Discharge Documenting (check all that apply): Post-Discharge Follow Up All imaging exams completed and their final reports reviewed: No Studies - Discharge Plan Condition: Good Disposition: HOME Prescriptions: Acyclovir [Zovirax] 400 mg PO TID 7 Days #21 tab metroNIDAZOLE VAGINAL 0.75%* 1 applic VAGINAL BEDTIME 7 Days #1 tube Patient Education Materials: Genital Herpes Simplex (ED) Referrals: oCty Fontanez NP [Primary Care Provider] - Additional Instructions: If another outbreak occurs please see your primary care for possible change in medication - Billing Disposition and Condition Condition: GOOD Disposition: Home
== END 2018-02-06 14:20 | disposition home or self-care (01) ==
LOC: UCEAST 13:20
DX: A60.00 Herpesviral infection of urogenital system, unspecified (principal); N76.0 Acute vaginitis; B96.89 Other specified bacterial agents as the cause of diseases classified elsewhere; Z88.1 Allergy status to other antibiotic agents; Z87.891 Personal history of nicotine dependence
CPT/HCPCS: 81003; 84702; 87480; 87491; 87510; 87591; 87661; 99212; G0463

== ENCOUNTER 2018-02-28 09:54 | Emergency (ER) | payer OTHER ==
[2018-02-28 10:00] VITALS: BP 117/73
--- NOTE | 2018-02-28 10:07 | UC ---
Respiratory Complaint HPI - HPI Summary HPI Summary: 32 yo female presents with dry cough, chest congestion, and sinus congestion for the last week. She has been taking taina-selzter and mucinex OTC with no relief. She denies fever, chills, sore throat, SOB, chest pain. - History of Current Complaint Chief Complaint: UCGeneralIllness Stated Complaint: COUGH,CONGESTION Time Seen by Provider: 02/28/18 10:07 Hx Obtained From: Patient Hx Last Menstrual Period: depo Onset/Duration: Gradual Onset Severity Initially: Moderate Severity Currently: Moderate Pain Intensity: 7 Pain Scale Used: 0-10 Numeric Character: Cough: Nonproductive - Allergies/Home Medications Allergies/Adverse Reactions: Allergies Allergy/AdvReac Type Severity Reaction Status Date / Time erythromycin base AdvReac Vomiting Verified 02/28/18 10:00 PMH/Surg Hx/FS Hx/Imm Hx - Additional Past Medical History Additional PMH: None Other History Of: Negative For: HIV, Hepatitis B, Hepatitis C, Anticoagulant Therapy - Surgical History Surgical History: Yes Surgery Procedure, Year, and Place: [facility]. BILATERAL BREAST IMPLANTS [place] - Family History Known Family History: Positive: Hypertension Negative: Cardiac Disease - Social History Occupation: Employed Full-time Lives: With Family Alcohol Use: Rare Substance Use Type: None Smoking Status (MU): Former Smoker Type: Cigarettes Amount Used/How Often: 1 ppd Length of Time of Smoking/Using Tobacco: 10 years Have You Smoked in the Last Year: No When Did the Patient Quit Smoking/Using Tobacco: OCT 2015 Review of Systems All Other Systems Reviewed And Are Negative: Yes Constitutional: Positive: Negative Skin: Positive: Negative Eyes: Positive: Negative ENT: Positive: Sinus Congestion Respiratory: Positive: Cough Cardiovascular: Positive: Negative Gastrointestinal: Positive: Negative Neurovascular: Positive: Negative Neurological: Positive: Negative Psychological: Positive: Negative Physical Exam - Summary Physical Exam Summary: GENERAL: NAD. WDWN. No pain distress. SKIN: No rashes, sores, lesions, or open wounds. HEENT: Head: AT/NC Eyes: EOM intact. Conjunctiva clear without inflammation or discharge. Ears: Hearing grossly normal. TMs intact, no bulging, erythema, or edema. Nose: Nasal mucosa pink and moist. NTTP maxillary and frontal sinus. Throat: Posterior oropharynx without exudates, erythema, or tonsillar enlargement. Uvula midline. NECK: Supple. Nontender. No lymphadenopathy. CHEST: CTAB. No r/r/w. No accessory muscle use. Breathing comfortably and in no distress. CV: RRR. Without m/r/g. Pulses intact. Cap refill <2seconds NEURO: Alert. PSYCH: Age appropriate behavior. Triage Information Reviewed: Yes Vital Signs: Initial Vital Signs Temp 98 F 02/28/18 09:58 Pulse 72 02/28/18 09:58 Resp 16 02/28/18 09:58 BP 117/73 02/28/18 09:58 Pulse Ox 99 02/28/18 09:58 Vital Signs Reviewed: Yes UC Diagnostic Evaluation - Laboratory O2 Sat by Pulse Oximetry: 99 Respiratory Course/Dx - Course Course Of Treatment: Discussed viral vs bacterial and pt prefers to be on anbx at this time. - Differential Dx/Diagnosis Provider Diagnosis: URI (upper respiratory infection) Discharge - Sign-Out/Discharge Documenting (check all that apply): Patient Departure All imaging exams completed and their final reports reviewed: No Studies - Discharge Plan Condition: Stable Disposition: HOME Prescriptions: Amoxicillin PO (*) [Amoxicillin 500 MG CAP*] 500 mg PO Q12H #14 cap Patient Education Materials: Upper Respiratory Infection (DC) Forms: *Work Release Referrals: Coty Fontanez NP [Primary Care Provider] - Additional Instructions: If you develop a fever, shortness of breath, chest pain, new or worsening symptoms - please call your PCP or go to the ED. - Billing Disposition and Condition Condition: STABLE Disposition: Home - Attestation Statements Provider Attestation: Per institutional requirements, I have reviewed the chart, however, I was not consulted specifically or made aware of this patient by the midlevel provider. I did not personally evaluate, interact with , or disposition this patient.
== END 2018-02-28 10:19 | disposition home or self-care (01) ==
LOC: UCEAST 09:54
DX: J06.9 Acute upper respiratory infection, unspecified (principal); Z88.1 Allergy status to other antibiotic agents; Z87.891 Personal history of nicotine dependence
CPT/HCPCS: 99212; G0463

== ENCOUNTER 2018-05-30 09:44 | Emergency (ER) | payer OTHER ==
[2018-05-30 10:00] VITALS: BP 108/69
--- NOTE | 2018-05-30 11:31 | UC ---
Complaint Female HPI - HPI Summary HPI Summary: PATIENT HAD A COLPOSCOPY AND [address]ERV[address] HERNANDEZ IN [place]. HAS HAD PROGRESSIVELY WORSENING LOWER ABDOMINAL PAIN AND CRAMPING SINCE THEN. DR. HERNANDEZ'S OFFICE IS CLOSED ON FRIDAYS SO SHE CAME IN HERE FOR EVALUATION. SHE IS COMPLAINING OF SOME CLOUDY WHITE VAGINAL DISCHARGE. SHE HAS NAUSEA BUT DENIES ANY FEVER. IS SEXUALLY ACTIVE WITH 1 MALE PARTNER FOR THE PAST 8 MONTHS. DOES NOT USE BARRIER METHODS OF CONTRACEPTION. IS ON THE DEPO SHOT. HAS HAD BV 3 TIMES THIS YEAR. HAD A LEEP PROCEDURE 2006. - History Of Current Complaint Chief Complaint: UCAbdominalPain Stated Complaint: ABD PAIN Time Seen by Provider: 05/30/18 11:18 Hx Obtained From: Patient Hx Last Menstrual Period: 04/14/18 Onset/Duration: Gradual Onset, Lasting Days, Still Present Timing: Constant Severity Initially: Mild Severity Currently: Moderate Pain Intensity: 6 Pain Scale Used: 0-10 Numeric Character: Sharp, Cramping Aggravating Factor(s): Nothing Associated Signs And Symptoms: Positive: Vaginal Discharge, Nausea. Negative: Fever - Allergies/Home Medications Allergies/Adverse Reactions: Allergies Allergy/AdvReac Type Severity Reaction Status Date / Time erythromycin base AdvReac Vomiting Verified 05/30/18 10:01 PMH/Surg Hx/FS Hx/Imm Hx Previously Healthy: Yes Other History Of: Negative For: HIV, Hepatitis B, Hepatitis C, Anticoagulant Therapy - Surgical History Surgical History: Yes Surgery Procedure, Year, and Place: [facility]. BILATERAL BREAST IMPLANTS [place] - Family History Known Family History: Positive: Hypertension Negative: Cardiac Disease - Social History Alcohol Use: Rare Substance Use Type: None Smoking Status (MU): Former Smoker Type: Cigarettes Amount Used/How Often: 1 ppd Length of Time of Smoking/Using Tobacco: 10 years Have You Smoked in the Last Year: No When Did the Patient Quit Smoking/Using Tobacco: OCT 2015 Review of Systems All Other Systems Reviewed And Are Negative: Yes Constitutional: Positive: Negative Respiratory: Positive: Negative Cardiovascular: Positive: Negative Gastrointestinal: Positive: Abdominal Pain Genitourinary: Positive: Vaginal/Penile Discharge Physical Exam Triage Information Reviewed: Yes Appearance: Well-Appearing, No Pain Distress, Well-Nourished Vital Signs: Initial Vital Signs Temp 99.3 F 05/30/18 09:57 Pulse 63 05/30/18 09:57 Resp 16 05/30/18 09:57 BP 108/69 05/30/18 09:57 Pulse Ox 100 05/30/18 09:57 Laboratory Tests 05/30/18 10:17 POC Urine Color Yellow POC Urine Clarity Clear POC Urine pH 8.0 POC Ur Specif [place] 1.015 POC Urine Protein Negative POC Ur Glucose (UA) Negative POC Urine Ketones Negative POC Urine Blood Negative POC Urine Nitrite Negative POC Urine Bilirubin Negative POC Urine Urobilinogen 0.2 POC U Leukocyte Esteras Trace A Vital Signs Reviewed: Yes Eyes: Positive: Conjunctiva Clear ENT: Positive: Hearing grossly normal Neck: Positive: Supple Respiratory: Positive: No respiratory distress, No accessory muscle use Cardiovascular: Positive: Pulses Normal Abdomen Description: Positive: Soft Pelvic Exam: Positive: External Exam Normal, Bimanual Exam Normal, No Cerv. Motion Tender, Cervicitis, Discharge - THICK WHITE, Other - BIOPSY SITES APPEAR TO BE HEALING NORMALLY Musculoskeletal: Positive: No Edema Neurological: Positive: Alert Psychological: Positive: Age Appropriate Behavior Skin: Negative: Rashes Complaint Female Dx - Course Course Of Treatment: PATIENT LIKELY WITH CERVICITIS FROM MECHANICAL TRAUMA GIVEN RECENT COLPOSCOPY WITH BIOPSY. SHE IS NOT AT ALL CONCERNED ABOUT STD HOWEVER FOR COMPLETENESS AND GIVEN THE THICK WHITE VAGINAL DISCHARGE, SWABS TAKEN FOR GONORRHEA/ CHLAMYDIA WELL BV, YEAST AND TRICHOMONAS. PATIENT STATES RECENTLY HAVING DIFFICULT YO TREAT BV. STATES SHE WAS NOT RESPONSIVE TO METRONIDAZOLE AND HAD TO TAKE CLINDAMYCIN. SHE REPORTS HER SYMPTOMS FEEL SOMEWHAT SIMILAR AND IS REQUESTING TREATMENT FOR BV AGAIN TODAY. WILL GO AHEAD AND GIVE CLINDAMYCIN TWICE DAILY FOR 7 DAYS. SHE IS TO CALL [employer] TECHNICIAN FOR FOLLOW-UP APPOINTMENT. TO THE ER WITHOUT FAIL IF SHE DEVELOPS FEVER, WORSENING PAIN OR OTHER CONCERNING SYMPTOMS. ADVISED TO ABSTAIN FROM INTERCOURSE. - Differential Dx/Diagnosis Provider Diagnosis: Cervicitis Discharge - Sign-Out/Discharge Documenting (check all that apply): Patient Departure All imaging exams completed and their final reports reviewed: No Studies - Discharge Plan Condition: Stable Disposition: HOME Prescriptions: Clindamycin Cap(NF) [Clindamycin Cap 300 mg Cap(NF)] 300 mg PO BID #14 cap Patient Education Materials: Cervicitis (ED) Referrals: Juan C Hernandez MD [Medical Doctor] - 1 Week Coty Fontanez NP [Primary Care Provider] - If Needed Additional Instructions: YOUR PAIN AND DISCOMFORT ARE LIKELY DUE TO TRAUMA FROM YOUR RECENT COLPOSCOPY WITH BIOPSY. YOUR BIOPSY SITES ALL SEEM TO BE HEALING WELL ON PHYSICAL EXAM TODAY. YOU HAVE SOME THICK WHITE DISCHARGE IN YOUR VAGINAL VAULT WHICH MAY SIMPLY BE DUE TO CERVICITIS FROM THE MECHANICAL TRAUMA. GIVEN YOUR DIFFICULT TO TREAT BACTERIAL VAGINOSIS RECENTLY AND SENSATION THAT THIS FEELS SIMILAR WILL GO AHEAD AND COVER WITH CLINDAMYCIN TWICE DAILY FOR 7 DAYS. SWABS TAKEN TODAY TO TEST FOR BV, YEAST AND TRICHOMONAS WELL GONORRHEA/CHLAMYDIA. WE WILL CALL YOU WITH ANY ABNORMAL RESULTS. YOU MAY ALSO CALL US FOR YOUR RESULTS. FOLLOW-UP WITH DR. HERNANDEZ IF YOU ARE NOT IMPROVING EXPECTED. I RECOMMEND YOU ABSTAIN FROM INTERCOURSE UNTIL YOUR SYMPTOMS HAVE COMPLETELY RESOLVED. - Billing Disposition and Condition Condition: STABLE Disposition: Home
--- NOTE | 2018-05-31 15:16 | UC ---
- Progress Note Progress Note: Vaginal DNA results come back from May 30, 2018 as positive for Gardnerella negative for Dahlia. Urine culture showed no growth. The rest of the lab results are pending. Patient started on clindamycin 3 mg by mouth twice a day 7 days which is an appropriate treatment for Gardnerella. Nursing to call patient and let her know about the results and that she at this time is being treated appropriately and that the remaining results are still pending. Course/Dx - Diagnoses Provider Diagnoses: Cervicitis Discharge - Sign-Out/Discharge Documenting (check all that apply): Patient Departure All imaging exams completed and their final reports reviewed: No Studies - Discharge Plan Condition: Stable Disposition: HOME Prescriptions: Clindamycin Cap(NF) [Clindamycin Cap 300 mg Cap(NF)] 300 mg PO BID #14 cap Patient Education Materials: Cervicitis (ED) Referrals: Juan C Hernandez MD [Medical Doctor] - 1 Week Coty Fontanez NP [Primary Care Provider] - If Needed Additional Instructions: YOUR PAIN AND DISCOMFORT ARE LIKELY DUE TO TRAUMA FROM YOUR RECENT COLPOSCOPY WITH BIOPSY. YOUR BIOPSY SITES ALL SEEM TO BE HEALING WELL ON PHYSICAL EXAM TODAY. YOU HAVE SOME THICK WHITE DISCHARGE IN YOUR VAGINAL VAULT WHICH MAY SIMPLY BE DUE TO CERVICITIS FROM THE MECHANICAL TRAUMA. GIVEN YOUR DIFFICULT TO TREAT BACTERIAL VAGINOSIS RECENTLY AND SENSATION THAT THIS FEELS SIMILAR WILL GO AHEAD AND COVER WITH CLINDAMYCIN TWICE DAILY FOR 7 DAYS. SWABS TAKEN TODAY TO TEST FOR BV, YEAST AND TRICHOMONAS WELL GONORRHEA/CHLAMYDIA. WE WILL CALL YOU WITH ANY ABNORMAL RESULTS. YOU MAY ALSO CALL US FOR YOUR RESULTS. FOLLOW-UP WITH DR. HERNANDEZ IF YOU ARE NOT IMPROVING EXPECTED. I RECOMMEND YOU ABSTAIN FROM INTERCOURSE UNTIL YOUR SYMPTOMS HAVE COMPLETELY RESOLVED. - Billing Disposition and Condition Condition: STABLE Disposition: Home
[2018-06-02 13:03] LABS: Neisseria gonorrhoeae (GC) RNA Negative (Negative)
[2018-06-03 13:00] LABS: Trichomonas vaginalis Result Negative (Negative)
== END 2018-05-30 12:27 | disposition home or self-care (01) ==
LOC: UCEAST 09:44
DX: N72 Inflammatory disease of cervix uteri (principal); B96.89 Other specified bacterial agents as the cause of diseases classified elsewhere; Z88.1 Allergy status to other antibiotic agents; Z87.891 Personal history of nicotine dependence
CPT/HCPCS: 81003; 87086; 87480; 87491; 87510; 87591; 87661; 99212; G0463

== ENCOUNTER 2018-08-01 18:28 | Emergency (ER) | payer OTHER ==
--- OUTSIDE RECORDS SUMMARY | 2018-08-01 19:13 | XMS REPORT | Continuity of Care Document ---
:1985 External Reference #:[id number] Author Name Tad Wuersten Care Team Providers Name Role Phone Deanne Ruth MD Primary Care Physician Unavailable Payers Date Identification Numbers Payment Provider Subscriber Policy Number: [id number] [employer]it [employer] Zenaida Wilson Group Number: [id number] [id number] PayID: [place] [address] Problems Active Problems Provider Date Shoulder joint unstable Mamadou Huang MD Onset: 09/25/2016 Recurrent dislocation of shoulder region Filippo Rodriguez MD Onset: 10/16/2016 Bicipital tenosynovitis Filippo Rodriguez MD Onset: 11/13/2016 Shoulder joint pain Filippo Rodriguez MD Onset: 07/31/2018 Sprain of shoulder Filippo Rodriguez MD Onset: 07/31/2018 Family History Date Family Member(s) Observation Comments General Diabetes General Hypertension General Cancer Father Diabetes Father Hypertension Father Hypercholesterolemia Paternal Grandfather Dementia Maternal Grandfather Skin Cancer Maternal Grandmother Diabetes Social History Type Date Description Comments Sex Unknown Lives With 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 [employer] ETOH Use Drinks 4 Alcoholic Beverages Per Week Tobacco Use Start: Unknown End: Patient is a former smoker Unknown Smoking Status Reviewed: 07/31/18 Patient is a former smoker Exercise Type/Frequency Exercises sporadically Exercise Type/Frequency Walks sporadically Exercise Type/Frequency Kayaking Exercise Type/Frequency Horseback riding Allergies, Adverse Reactions, Alerts Active Allergies Reaction Severity Comments Date Erythromycin Nausea and Vomiting 09/25/2016 Medications Active Medications SIG Qnty Indications Ordering Provider Date Depo-Provera every 3 months Unknown 150mg/ml Suspension History Medications Methylprednisolone 6 by mouth 21units M24.411 Filippo Rodriguez, 12/13/2016 - 4mg TBPK day 1, 5 by 07/30/2018 mouth day 2, 4 by mouth day 3, 3 by mouth day 4, 2 by mouth day 5, 1 by mouth day 6 Keflex take 1 pill 4 12caps Filippo Rodrigeuz, 10/29/2016 - 500mg Capsules times a day 11/19/2016 for 3 days Percocet 1-2 tabs by 40tabs M24.411 Filippo Rodriguez, 10/23/2016 - 5-325mg Tablets mouth every 03/15/2016 4-6 hours as needed pain. Do not fill unitl 10/27/16 Vital Signs Date Vital Result Comment 07/31/2018 8:37am Height 64 inches 5'4" Weight 140.00 lb BP Systolic 106 mmHg BP Diastolic 67 mmHg Respiratory Rate 16 /min Pain Level 5 BMI (Body Mass Index) 24.0 kg/m2 03/21/2017 10:15am Height 64 inches 5'4" Heart Rate 68 /min BP Systolic 110 mmHg BP Diastolic 70 mmHg Respiratory Rate 16 /min Body Temperature 97.6 F Pain Level 0 02/07/2017 9:15am Height 64 inches 5'4" Weight 165.00 lb BP Systolic 120 mmHg BP Diastolic 70 mmHg Respiratory Rate 20 /min Pain Level 0 BMI (Body Mass Index) 28.3 kg/m2 01/15/2017 11:41am Height 64 inches 5'4" Weight 165.00 lb Respiratory Rate 12 /min Pain Level 1 BMI (Body Mass Index) 28.3 kg/m2 12/13/2016 2:28pm Height 64 inches 5'4" Weight 165.00 lb Heart Rate 62 /min Respiratory Rate 14 /min Body Temperature 98.6 F Pain Level 6 BMI (Body Mass Index) 28.3 kg/m2 11/13/2016 8:24am Height 64 inches 5'4" Weight 165.00 lb Per Patient BP Systolic 112 mmHg BP Diastolic 70 mmHg Respiratory Rate 14 /min Body Temperature 98.3 F Pain Level 0 BMI (Body Mass Index) 28.3 kg/m2 10/23/2016 2:20pm Height 64 inches 5'4" Weight 161.00 lb Heart Rate 66 /min BP Systolic 114 mmHg BP Diastolic 76 mmHg Respiratory Rate 16 /min Body Temperature 98.0 F Pain Level 0 BMI (Body Mass Index) 27.6 kg/m2 10/16/2016 10:53am Height 64 inches 5'4" Weight 161.00 lb Heart Rate 60 /min BP Systolic Sitting 115 mmHg BP Diastolic Sitting 80 mmHg Body Temperature 98.5 F Pain Level 1 BMI (Body Mass Index) 27.6 kg/m2 09/25/2016 11:20am Height 63 inches 5'3" Weight 164.25 lb Heart Rate 66 /min BP Systolic Sitting 106 mmHg BP Diastolic Sitting 70 mmHg Respiratory Rate 12 /min Pain Level 7 BMI (Body Mass Index) 29.1 kg/m2 Procedures Date Code Description Status 10/29/2016 72818 arthroscopy w/removal loose body or foreign body Completed 10/29/2016 00622 Arthroscopy,Shoulder,Surg,Capsulorrhaphy Completed 10/29/2016 43384 Tenodesis Biceps Long Tendon Completed 10/29/2016 19454 Tenodesis Biceps Long Tendon Completed 09/25/2016 80568 Rad Shoulder Comp, Min. 2 Views Completed Encounters Type Date Location Provider Dx Diagnosis Office Visit 03/21/2017 Orthopedic Filippo Rodriguez MD M24.411 Recurrent 10:00a [facility] dislocation, right shoulder M75.21 Bicipital tendinitis, right shoulder Z47.89 Encounter for other orthopedic aftercare Office Visit 02/07/2017 9:00a Orthopedic Filippo Rodriguez M24.411 Recurrent Services Of dislocation, right [facility] shoulder M75.21 Bicipital tendinitis, right shoulder Z47.89 Encounter for other orthopedic aftercare Office Visit 10/16/2016 Orthopedic Filippo Rodriguez M24.411 Recurrent 10:30a Services Of dislocation, right [facility] shoulder Office Visit 09/25/2016 Orthopedic Mamadou S43.004A Unspecified 11:00a Services Of Steven Huang MD dislocation of AT [place] right shoulder joint, init encntr M25.311 Other instability, right shoulder Plan of Treatment Future Appointment(s):08/26/2018 9:00 am - Sascha Monk MD at [facility] at [id number]/13/2019 - Filippo Rodriguez, MDS43.491A Other sprain of right shoulder joint, initial encounterNew Xrays:MRI Shoulder Right W/O, Ordered : 07/31/18Follow up:Follow up: after MRIM25.511 Pain in right shoulder
== END 2018-08-01 19:13 | disposition left against medical advice (07) ==
LOC: UCCORT 18:28
DX: R39.89 Other symptoms and signs involving the genitourinary system (principal); Z53.21 Procedure and treatment not carried out due to patient leaving prior to being seen by health care provider

== ENCOUNTER 2018-08-01 19:31 | Emergency (ER) | payer SELFPAY ==
[2018-08-01 19:42] VITALS: BP 126/68
--- NOTE | 2018-08-01 20:03 | UC ---
Complaint Female HPI - HPI Summary HPI Summary: 33-year-old female who has chronic bacterial vaginosis. She states that she has had approximately 12 pelvic exams with positive cultures for bacterial vaginosis since November 2017. She is sexually active with one partner. She denies any pain fever or chills. She states she has also had chlamydia and gonorrhea testing done at the same times and those have always been negative. She states 2 weeks ago she finished a course of clindamycin which totally cleared the bacterial vaginosis however she states the foul odor and mild discharge has returned. - History Of Current Complaint Chief Complaint: UCGU Stated Complaint: PERSONAL Time Seen by Provider: 08/01/18 19:41 Hx Obtained From: Patient Hx Last Menstrual Period: 04/14/2018..on depo ?: No Onset/Duration: Gradual Onset Timing: Constant Severity Initially: Mild Severity Currently: Mild Pain Intensity: 2 Character: Burning Aggravating Factor(s): Nothing Alleviating Factor(s): Nothing - Mild vaginal burning. Associated Signs And Symptoms: Positive: Vaginal Bleeding/Discharge - Mild whitish vaginal discharge. - Allergies/Home Medications Allergies/Adverse Reactions: Allergies Allergy/AdvReac Type Severity Reaction Status Date / Time erythromycin base AdvReac Vomiting Verified 08/01/18 16:09 PMH/Surg Hx/FS Hx/Imm Hx Previously Healthy: Yes Other History Of: Negative For: HIV, Hepatitis B, Hepatitis C, Anticoagulant Therapy - Surgical History Surgical History: Yes Surgery Procedure, Year, and Place: LEEP [place]. BILATERAL BREAST IMPLANTS [place]. RIGHT SHOULDER 10/29/2016 - Family History Known Family History: Positive: Hypertension Negative: Cardiac Disease - Social History Alcohol Use: Rare Substance Use Type: None Smoking Status (MU): Former Smoker Type: Cigarettes Amount Used/How Often: 1 ppd Length of Time of Smoking/Using Tobacco: 10 years Have You Smoked in the Last Year: No When Did the Patient Quit Smoking/Using Tobacco: OCT 2015 Review of Systems All Other Systems Reviewed And Are Negative: Yes Genitourinary: Positive: Vaginal/Penile Burning - Mild vaginal burning at times. , Vaginal/Penile Discharge - Minimal white discharge with a foul odor consistent with all of the time she has had bacterial vaginosis diagnosed. Is Patient Immunocompromised?: No Physical Exam Triage Information Reviewed: Yes Appearance: Well-Appearing, No Pain Distress, Well-Nourished Vital Signs: Initial Vital Signs Temp 99.2 F 08/01/18 19:36 Pulse 63 08/01/18 19:36 Resp 16 08/01/18 19:36 BP 126/68 08/01/18 19:36 Pulse Ox 98 08/01/18 19:36 Vital Signs Reviewed: Yes Respiratory: Positive: Lungs clear, Normal breath sounds, No respiratory distress, No accessory muscle use Cardiovascular: Positive: RRR, No Murmur, Pulses Normal, Brisk Capillary Refill Abdomen Description: Positive: Nontender, No Organomegaly, Soft Bowel Sounds: Positive: Present Pelvic Exam: Positive: Other - Preferred not to have a pelvic exam. Musculoskeletal Exam: Normal Neurological Exam: Normal Psychological Exam: Normal Skin Exam: Normal Complaint Female Dx - Course Course Of Treatment: 33-year-old female who has a history of chronic bacterial vaginosis. She states she has had about 12 pelvic exam since November 2017 for this and each time it's been diagnosis BV. She has no pain at all she has scant amount of whitish discharge with a follow-up with her. This patient's history is very believable and I don't feel I need to put her through a pelvic exam tonight. I am going to treat her with clindamycin 300 mg 3 times a day for 10 days with a follow-up to [facility] who does deal with chronic bacterial vaginosis treatment. The nursing staff was able to give her information regarding that. She is to recheck especially if she develops any pain, fever, chills worsening of symptoms. The patient is agreeable to this plan of action. - Differential Dx/Diagnosis Provider Diagnosis: Bacterial vaginosis - Physician Notifications Discussed Patient Care With: Shawn Palomo Time Discussed With Above Provider: 20:00 Discharge - Sign-Out/Discharge Documenting (check all that apply): Patient Departure All imaging exams completed and their final reports reviewed: No Studies - Discharge Plan Condition: Fair Disposition: HOME Prescriptions: Clindamycin Cap(NF) [Clindamycin Cap 300 mg Cap(NF)] 300 mg PO TID 10 Days #30 cap Patient Education Materials: Bacterial Vaginosis (ED) Referrals: No Primary Care Phys,NOPCP [Primary Care Provider[facility] Additional Instructions: Take the clindamycin with food. [facility] or your OB /[facility] physician for further care. - Billing Disposition and Condition Condition: FAIR Disposition: Home
== END 2018-08-01 20:07 | disposition home or self-care (01) ==
LOC: UCEAST 19:31
DX: N76.0 Acute vaginitis (principal); Z88.1 Allergy status to other antibiotic agents; Z87.891 Personal history of nicotine dependence; Z87.42 Personal history of other diseases of the female genital tract
CPT/HCPCS: 99211; G0463

== ENCOUNTER 2018-10-01 10:24 | Emergency (ER) | payer OTHER ==
[2018-10-01 10:50] VITALS: BP 110/69
--- NOTE | 2018-10-01 12:04 | UC ---
Complaint Female HPI - HPI Summary HPI Summary: 33 yo female with vaginal d/c and itch x days fishy oder multiple episodes of BV past few mos no f/c - History Of Current Complaint Chief Complaint: UCGU Stated Complaint: PERSONAL Time Seen by Provider: 10/01/18 11:38 Hx Obtained From: Patient Hx Last Menstrual Period: 04/14/2018..on depo Onset/Duration: Gradual Onset, Lasting Days Timing: Constant Severity Initially: Moderate Severity Currently: Moderate Pain Intensity: 0 Pain Scale Used: 0-10 Numeric Aggravating Factor(s): Nothing Alleviating Factor(s): Nothing Associated Signs And Symptoms: Positive: Negative - Allergies/Home Medications Allergies/Adverse Reactions: Allergies Allergy/AdvReac Type Severity Reaction Status Date / Time erythromycin base AdvReac Vomiting Verified 10/01/18 10:50 Home Medications: Home Medications Escitalopram * [Lexapro *] 20 mg PO DAILY 10/01/18 [History Confirmed 10/01/18] QUEtiapine TAB* [Seroquel 25 MG TAB*] 25 mg PO BEDTIME 10/01/18 [History Confirmed 10/01/18] PMH/Surg Hx/FS Hx/Imm Hx Previously Healthy: Yes Other History Of: Negative For: HIV, Hepatitis B, Hepatitis C, Anticoagulant Therapy - Surgical History Surgical History: Yes Surgery Procedure, Year, and Place: [facility] [place]. BILATERAL BREAST IMPLANTS [place]. RIGHT SHOULDER 10/29/2016 - Family History Known Family History: Positive: Hypertension Negative: Cardiac Disease - Social History Alcohol Use: Occasionally Substance Use Type: None Smoking Status (MU): Former Smoker Type: Cigarettes Amount Used/How Often: 1 ppd Length of Time of Smoking/Using Tobacco: 10 years Have You Smoked in the Last Year: No When Did the Patient Quit Smoking/Using Tobacco: OCT 2015 Review of Systems All Other Systems Reviewed And Are Negative: Yes Constitutional: Positive: Negative Skin: Positive: Negative Eyes: Positive: Negative, Diplopia ENT: Positive: Negative Respiratory: Positive: Negative Cardiovascular: Positive: Negative Genitourinary: Positive: Dysuria, Vaginal/Penile Itching, Vaginal/Penile Discharge Motor: Positive: Negative Neurovascular: Positive: Negative Musculoskeletal: Positive: Negative Neurological: Positive: Negative Psychological: Positive: Negative Physical Exam Triage Information Reviewed: Yes Appearance: Well-Appearing, No Pain Distress, Well-Nourished Vital Signs: Initial Vital Signs Temp 98.8 F 10/01/18 10:47 Pulse 58 10/01/18 10:47 Resp 18 10/01/18 10:47 BP 110/69 10/01/18 10:47 Pulse Ox 99 10/01/18 10:47 Vital Signs Reviewed: Yes Eyes: Positive: Conjunctiva Clear ENT: Positive: Hearing grossly normal, Nasal congestion, Nasal drainage. Negative: Trismus, Muffled voice, Hoarse voice Neck: Positive: Supple, Nontender, No Lymphadenopathy Respiratory: Positive: Lungs clear, Normal breath sounds Cardiovascular: Positive: RRR Musculoskeletal: Positive: ROM Intact, No Edema Neurological: Positive: Alert Psychological Exam: Normal Skin Exam: Normal Complaint Female Dx - Differential Dx/Diagnosis Provider Diagnosis: Vaginitis Discharge - Sign-Out/Discharge Documenting (check all that apply): Patient Departure All imaging exams completed and their final reports reviewed: No Studies - Discharge Plan Condition: Stable Disposition: HOME Prescriptions: Clindamycin SUPP (NF) [Cleocin 100 MG SUPP (NF)] 100 mg VAGINAL DAILY #3 sup Patient Education Materials: Bacterial Vaginosis (ED) Referrals: No Primary Care Phys,NOPCP [Primary Care Provider] - Additional Instructions: Suspect BV see [employer] in follow up as planned - Billing Disposition and Condition Condition: STABLE Disposition: Home
--- OUTSIDE RECORDS SUMMARY | 2018-10-01 17:55 | XMS REPORT | Continuity of Care Document ---
:1985 External Reference #:[id number] Author Name Swetha Escalante Care Team Providers Name Role Phone Deanne Ruth MD Primary Care Physician Unavailable Payers Date Identification Numbers Payment Provider Subscriber Policy Number: [id number] Lifetime Benefit Solution Zenaida Wilson Group Number: [id number] [address] PayID: [place] [address] Problems Active Problems Provider Date Shoulder joint unstable Mamadou Huang MD Onset: 09/25/2016 Recurrent dislocation of shoulder region Filippo Rodriguez MD Onset: 10/16/2016 Bicipital tenosynovitis Filippo Rodriguez MD Onset: 11/13/2016 Sprain of shoulder Filippo Rodriguez MD Onset: 07/31/2018 Shoulder joint pain Filippo Rodriguez MD Onset: 07/31/2018 Family History Date Family Member(s) Observation Comments General Diabetes General Hypertension General Cancer Father Diabetes Father Hypertension Father Hypercholesterolemia Paternal Grandfather Dementia Maternal Grandfather Skin Cancer Maternal Grandmother Diabetes Social History Type Date Description Comments Sex Unknown Lives With 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 ETOH Use Drinks 4 Alcoholic Beverages Per Week Tobacco Use Start: Unknown End: Patient is a former smoker Unknown Smoking Status Reviewed: 09/05/18 Patient is a former smoker Exercise Type/Frequency Exercises sporadically Exercise Type/Frequency Walks sporadically Exercise Type/Frequency Kayaking Exercise Type/Frequency Horseback riding Allergies, Adverse Reactions, Alerts Active Allergies Reaction Severity Comments Date Erythromycin Nausea and Vomiting 09/25/2016 Medications Active Medications SIG Qnty Indications Ordering Provider Date Depo-Provera every 10 weeks 1ml Sascha Monk MD 150mg/ml Suspension Seroquel Unknown History Medications Methylprednisolone 6 by mouth 21units M24.411 Filippo Rodriguez, 12/13/2016 - 4mg TBPK day 1, 5 by 07/30/2018 mouth day 2, 4 by mouth day 3, 3 by mouth day 4, 2 by mouth day 5, 1 by mouth day 6 Keflex take 1 pill 4 12caps Filippo Rodriguez, 10/29/2016 - 500mg Capsules times a day 11/19/2016 for 3 days Percocet 1-2 tabs by 40tabs M24.411 Filippo Rodriguez, 10/23/2016 - 5-325mg Tablets mouth every MD 03/15/2016 4-6 hours as needed pain. Do not fill unitl 10/27/16 Medications Administered in Office Medication SIG Qnty Indications Ordering Provider Date Triamcinolone (Kenalog) Filippo Rodriguez MD 09/05/2018 Injection Vital Signs Date Vital Result Comment 09/05/2018 9:56am Height 63 inches 5'3" Weight 140.00 lb Heart Rate 56 /min BP Systolic 114 mmHg BP Diastolic 60 mmHg Pain Level 5 BMI (Body Mass Index) 24.8 kg/m2 08/26/2018 9:02am Height 64 inches 5'4" Weight 142.00 lb Heart Rate 81 /min BP Systolic 118 mmHg BP Diastolic 82 mmHg O2 % BldC Oximetry 98 % BMI (Body Mass Index) 24.4 kg/m2 Last Menstrual Period [id number] 08/08/2018 10:07am Height 64 inches 5'4" Weight 140.00 lb BP Systolic 118 mmHg BP Diastolic 68 mmHg Respiratory Rate 18 /min Pain Level 5 BMI (Body Mass Index) 24.0 kg/m2 07/31/2018 8:37am Height 64 inches 5'4" Weight [...] 7 BMI (Body Mass Index) 29.1 kg/m2 Results Test Date Facility Test Result H/L Range Note Laboratory test 08/26/2018 [facility] Gardnerella/Ye SEE RESULT [address] ast: [place] [address] Dna [phone] 1 SEE RESULT BELOW Name: ZENAIDA WILSON : [address]: Sascha Monk MD Acct: [id number] Unit: [id number] AGE: 33 Location: [facility] Re08/26/18 SEX: F Status: REG REF SPEC: [id number] BLU: 08/26/18-[address]: Sascha Monk MD REQ: [id number] RECD: 08/26/18562 STATUS: COMP _ SOURCE: VAGINAL SPDESC: ORDERED: Randee,Yeast DNA, Trich DNA COMMENTS: [id number] Would you like to order Trichomonas Vaginalis testing? Yes Procedure Result Reported Site Gardnerella/Yeast: Vaginal DNA Final 08/27/18- 1110 ML Organism 1 Negative Gardnerella Organism 2 Negative Dahlia The presence of G. vaginalis, although suggestive, is not diagnostic for bacterial vaginosis. Results should be interpreted in conjuction with other clinical and laboratory data available. Women with vaginal discharge should be evaluated for risk factors of cervicitis and pelvic inflammatory disease, toxic shock syndrome (S.aureus), and if present, evaluated for organisms not included in this assay such as N. gonorrhoeae, C. trachomatis, Mobiluncus, Mycoplasma and/or Prevotella. Mixed infections may occur. The performance of this test on patient specimens collected during or immediately after antimicrobial therapy is unknown. The presence or absence of Dahlia species, or G. vaginalis cannot be used as a test for therapeutic success or failure. Trichomonas: Vaginal DNA Probe Final 08/27/18- 1113 ML Organism 1 Negative Trichomonas CONTINUED ON NEXT PAGE DEPARTMENT OF PATHOLOGY, [address] [place] [address] Tam Oswald M.D. Director [facility] # [id number] Patient: ZENAIDA WILSON [id number] (Continued) Specimen: [id number] Collected: 08/26/18 Received: 08/26/18 (Continued) Procedure Result Reported Site Trichomonas: Vaginal DNA Probe Final (continued) 08/27/18- 1113 The presence or absence of T. vaginalis cannot be used as a test for therapeutic success or failure. * ML - Main Lab . END OF REPORT DEPARTMENT OF PATHOLOGY, [address] [place] [address] Tam Oswald M.D. Director [facility] # [id number] Procedures Date Code Description Status 09/05/2018 48301 Inject Tendon Sheath Or Ligament Aponeurosis Eg Plantar Completed Fascia 10/29/2016 32181 arthroscopy w/removal loose body or foreign body Completed 10/29/2016 87114 Arthroscopy,Shoulder,Surg,Capsulorrhaphy Completed 10/29/2016 19666 Tenodesis Biceps Long Tendon Completed 10/29/2016 22699 Tenodesis Biceps Long Tendon Completed 09/25/2016 89866 Rad Shoulder Comp, Min. 2 Views Completed Encounters Type Date Location Provider Dx Diagnosis Office Visit 09/05/2018 Orthopedic Filippo Rodriguez MD S43.491D Other sprain of 9:45a [facility] right shoulder joint, subsequent encounter M25.511 Pain in right shoulder M75.21 Bicipital tendinitis, right shoulder [facility], N76.1 [facility] at chronic vaginitis [place] N80.9 Endometriosis, unspecified N87.0 Mild cervical dysplasia Office Visit 08/08/2018 9:45a Orthopedic iFlippo Rodriguez, S43.491D Other sprain of Services Of right shoulder [facility] joint, subsequent encounter Office Visit 07/31/2018 8:30a Orthopedic Filippo Rodriguez, S43.491A Other sprain of Services Of right shoulder [facility] joint, initial encounter M25.511 Pain in right shoulder Office Visit 03/21/2017 10:00a Orthopedic Filippo Rodriguez, M24.411 Recurrent Services Of dislocation, right [facility] shoulder M75.21 Bicipital tendinitis, right shoulder Z47.89 Encounter for other orthopedic aftercare Office Visit 02/07/2017 9:00a Orthopedic Filippo Rodriguez, M24.411 Recurrent Services Of dislocation, right [facility] shoulder M75.21 Bicipital tendinitis, right shoulder Z47.89 Encounter for other orthopedic aftercare Office Visit 10/16/2016 Orthopedic Filippo Rodriguez, M24.411 Recurrent 10:30a Services Of dislocation, right [facility] shoulder Office Visit 09/25/2016 Orthopedic Mamadou S43.004A Unspecified 11:00a Services Of Steven Huang MD dislocation of AT [place] right shoulder joint, init encntr M25.311 Other instability, right shoulder Plan of Treatment Future Appointment(s):11/27/2018 9:30 am - [facility] Visit [facility]10/03/2018 8:45 am - Filippo Rodriguez MD at [facility]11/27/2018 9:00 am - Sascha Monk MD at [facility]09/05/2018 - Filippo Rodriguez, MDS43.491D Other sprain of right shoulder joint, subsequent encounterFollow up:4 xkxgwK15.511 Pain in right isleecwuR10.21 Bicipital tendinitis, right shoulder
--- OUTSIDE RECORDS SUMMARY | 2018-10-01 17:55 | XMS REPORT | Continuity of Care Document ---
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 ETOH Use Drinks 4 Alcoholic Beverages Per [...] Depo-Provera every 3 months Unknown 150mg/ml Suspension Seroquel Unknown History Medications Methylprednisolone 6 by mouth 21units M24.411 Filippo Rodriguez, 12/13/2016 - 4mg TBPK day 1, 5 by MD 07/30/2018 mouth day 2, 4 by mouth [...] 10/27/16 Vital Signs Date Vital Result Comment 09/05/2018 [...] Mass Index) 24.4 kg/m2 Last Menstrual Period [id number] 08/08/2018 10:07am Height 64 inches 5'4" Weight [...] Result H/L Range Note Laboratory test 08/26/2018 [facility] Camelia/Juan SEE RESULT [address] ast: [place] [address] Dna [phone] 1 SEE RESULT BELOW Name: ZENAIDA WILSON : [address]: Sascha Monk MD Acct: [id number] Unit: [id number] AGE: 33 Location: [facility] Re08/26/18 SEX: F Status: REG REF SPEC: [id number] BLU: 08/26/18-954 [facility] DR: Sascha Monk MD REQ: [id number] RECD: 08/26/18290 STATUS: COMP _ SOURCE: VAGINAL SPDESC: ORDERED: Randee,Yeast DNA, Trich DNA COMMENTS: [id number] Would you like to order Trichomonas Vaginalis [...] CONTINUED ON NEXT PAGE DEPARTMENT OF PATHOLOGY, [address] [place] [address] Tam Oswald M.D. Director [facility] # [id number] Patient: YONATHANZENAIDA [id number] (Continued) Specimen: [id number] Collected: 08/26/18 Received: 08/26/18-409 (Continued) Procedure Result Reported Site Trichomonas: Vaginal DNA Probe Final (continued) 08/27/18- 1113 The presence or absence of T. vaginalis cannot be used as a test for therapeutic success or failure. * - Main Lab . END OF REPORT DEPARTMENT OF PATHOLOGY, [address] [place] [address] Tam Oswald M.D. Director [facility] # [id number] Procedures Date Code Description Status 10/29/2016 94021 arthroscopy w/removal loose body or foreign body Completed 10/29/2016 81119 Arthroscopy,Shoulder,Surg,Capsulorrhaphy Completed 10/29/2016 68471 Tenodesis Biceps Long Tendon Completed 10/29/2016 02003 Tenodesis Biceps Long Tendon Completed 09/25/2016 64604 Rad Shoulder Comp, Min. 2 Views Completed Encounters Type Date Location Provider Dx Diagnosis Office Visit 08/08/2018 Tereso Rodriguez MD S43.491D Other sprain of 9:45a [facility] right shoulder joint, subsequent encounter Office Visit 07/31/2018 Tereso Rodriguez MD S43.491A Other sprain of 8:30a [facility] right shoulder joint, initial encounter M25.511 Pain in right shoulder Office Visit 03/21/2017 10:00a Tereso Rodriguez M24.411 Recurrent Services Of MD hinojosa, right [facility] shoulder M75.21 Bicipital tendinitis, right [...] Of Steven Huang MD dislocation of AT [place] right shoulder joint, init encntr M25.311 Other instability, right shoulder Plan of Treatment Future Appointment(s):10/03/2018 8:45 am - Filippo Rodriguez MD at [facility]11/27/2018 9:00 am - Sascha Monk MD at [facility]09/19/2018 9:00 am - Nurse Visit [facility]
--- OUTSIDE RECORDS SUMMARY | 2018-10-01 17:55 | XMS REPORT | Continuity of Care Document ---
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 ETOH Use Drinks 4 Alcoholic Beverages Per [...] Mass Index) 24.4 kg/m2 Last Menstrual Period [id number] 08/08/2018 10:07am Height 64 inches 5'4" Weight [...] Result H/L Range Note Laboratory test 08/26/2018 [facility] Gardnerella/Ye SEE RESULT [address] ast: [place] [address] Dna [phone] 1 SEE RESULT BELOW Name: ZENAIDA WILSON : [address]: Sascha Monk MD Acct: [id number] Unit: [id number] AGE: 33 Location: [facility] Re08/26/18 SEX: F Status: REG REF SPEC: [id number] BLU: 08/26/18-[address]: Sascha Monk MD REQ: [id number] RECD: 08/26/18217 STATUS: COMP _ SOURCE: VAGINAL SPDESC: ORDERED: Randee,Yeast DNA, Trich DNA COMMENTS: [id number] Would you like to order Trichomonas Vaginalis [...] CONTINUED ON NEXT PAGE DEPARTMENT OF PATHOLOGY, [address] [place] [address] Tam Oswald M.D. Director [facility] # [id number] Patient: ZENAIDA WILSON [id number] (Continued) Specimen: [id number] Collected: 08/26/18 Received: 08/26/18 (Continued) Procedure Result Reported Site Trichomonas: Vaginal DNA Probe Final (continued) 08/27/18- 1113 The presence or absence of T. vaginalis cannot be used as a test for therapeutic success or failure. * ML - Main Lab . END OF REPORT DEPARTMENT OF PATHOLOGY, [address] [place] [address] Tam Oswald M.D. Director [facility] # [id number] Procedures Date Code Description Status 09/05/2018 53638 Inject Tendon Sheath Or Ligament Aponeurosis Eg Plantar Completed Fascia 10/29/2016 21125 arthroscopy w/removal loose body or foreign body Completed 10/29/2016 53832 Arthroscopy,Shoulder,Surg,Capsulorrhaphy Completed 10/29/2016 97934 Tenodesis Biceps Long Tendon Completed 10/29/2016 66738 Tenodesis Biceps Long Tendon Completed 09/25/2016 79658 Rad Shoulder Comp, Min. 2 Views Completed Encounters Type Date Location Provider Dx Diagnosis Office Visit 09/05/2018 Orthopedic Filippo Rodriguez MD S43.491D Other sprain of 9:45a [facility] right shoulder joint, subsequent encounter M25.511 Pain in right shoulder M75.21 Bicipital tendinitis, right shoulder Office Visit 08/26[facility]2018 9[facility], N76.1 [facility] and [facility] at chronic vaginitis [place] N80.9 Endometriosis, unspecified N87.0 Mild cervical dysplasia Office Visit 08/08/2018 9:45a Orthopedic Filippo Rodriguez, S43.491D Other sprain of Services Of [...] Of Steven Huang MD dislocation of AT [place] right shoulder joint, init encntr M25.311 Other instability, right shoulder Plan of Treatment Future Appointment(s):11/28/2018 9:30 am - [facility] Visit [facility]10/03/2018 8:45 am - Filippo Rodriguez MD at [facility]11/27/2018 9:00 am - Sascha Monk MD at [facility]09/05/2018 - Filippo Rodriguez, MDS43.491D Other sprain of right shoulder joint, subsequent encounterFollow up:4 fpaamG36.511 Pain in right udcnynzoS18.21 Bicipital tendinitis, right shoulder
--- OUTSIDE RECORDS SUMMARY | 2018-10-01 17:55 | XMS REPORT | Continuity of Care Document ---
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 Gardnerella/Ye SEE RESULT [address] ast: [place] [address] Dna [phone] 1 SEE RESULT BELOW Name: ZENAIDA WILSON : [address]: Sascha Monk MD Acct: [id number] Unit: [id number] AGE: 33 Location: [facility] Re08/26/18 SEX: F Status: REG REF SPEC: [id number] BLU: 08/26/[address]: Sascha Monk MD REQ: [id number] RECD: 08/26/18 STATUS: COMP _ SOURCE: VAGINAL SPDESC: ORDERED: Randee,Yeast DNA, Trich DNA COMMENTS: [id number] Would you like to order Trichomonas Vaginalis [...] CONTINUED ON NEXT PAGE DEPARTMENT OF PATHOLOGY, [address] [place] [address] Tam Oswald M.D. Director [facility] # [id number] Patient: ZENAIDA WILSON [id number] (Continued) Specimen: [id number] Collected: 08/26/18 Received: 08/26/18-1357 (Continued) Procedure Result Reported Site Trichomonas: Vaginal DNA Probe Final (continued) 08/27/18- 1113 The presence or absence of T. vaginalis cannot be used as a test for therapeutic success or failure. * ML - Main Lab . END OF REPORT DEPARTMENT OF PATHOLOGY, [address] [place] [address] Tam Oswald M.D. Director [facility] # [id number] Procedures Date Code Description Status 09/05/2018 61292 Inject Tendon Sheath Or Ligament Aponeurosis Eg Plantar Completed Fascia 10/29/2016 41474 arthroscopy w/removal loose body or foreign body Completed 10/29/2016 96295 Arthroscopy,Shoulder,Surg,Capsulorrhaphy Completed 10/29/2016 67230 Tenodesis Biceps Long Tendon Completed 10/29/2016 09618 Tenodesis Biceps Long Tendon Completed 09/25/2016 40150 Rad Shoulder Comp, Min. 2 Views Completed Encounters Type Date Location Provider Dx Diagnosis Office Visit 09/05/2018 [facility] Filippo Rodriguez MD S43.491D Other sprain of 9:45a [facility] right shoulder joint, subsequent encounter M25.511 Pain in right shoulder M75.21 Bicipital tendinitis, right shoulder Office Visit 08/26/2018 9:[facility]a [facility] N76.1 [facility] at chronic vaginitis [place] N80.9 Endometriosis, unspecified N87.0 Mild cervical dysplasia Office Visit 08/08/2018 9:45a [facility] Filippo Rodriguez, S43.491D Other sprain of [facility] right shoulder [facility] joint, subsequent encounter Office Visit 07/31/2018 8:30a [facility] Filippo Rodriguez S43.491A Other sprain of [facility] right [...] Of Steven Huang MD dislocation of AT [place] right shoulder joint, init encntr M25.311 Other instability, right shoulder Plan of Treatment Future Appointment(s):11/27/2018 9:30 am - [facility]10/03/2018 8:45 am - Filippo Rodriguez MD at [facility]11/27/2018 9:00 am - Sascha Monk MD at [facility]09/05/2018 - Filippo Rodriguez MDS43.491D Other sprain of right shoulder joint, subsequent encounterFollow up:4 xvahgB78.511 Pain in right sivqcmuuL48.21 Bicipital tendinitis, right shoulder
--- NOTE | 2018-10-02 19:35 | UC ---
- Progress Note Progress Note: call patient and assure sx have resolved if not please assure patient has follow up for re-check Course/Dx - Diagnoses Provider Diagnoses: Vaginitis Discharge - Sign-Out/Discharge Documenting (check all that apply): Post-Discharge Follow Up All imaging exams completed and their final reports reviewed: No Studies - Discharge Plan Condition: Stable Disposition: HOME Prescriptions: Clindamycin SUPP (NF) [Cleocin 100 MG SUPP (NF)] 100 mg VAGINAL DAILY #3 sup Patient Education Materials: Bacterial Vaginosis (ED) Referrals: No Primary Care Phys,NOPCP [Primary Care Provider] - Additional Instructions: Suspect BV see [facility] [employer] [employer] in follow up as planned - Billing Disposition and Condition Condition: STABLE Disposition: Home
== END 2018-10-01 12:10 | disposition home or self-care (01) ==
LOC: UCEAST 10:24
DX: N76.0 Acute vaginitis (principal); Z87.891 Personal history of nicotine dependence
CPT/HCPCS: 87480; 87510; 87660; 99212; G0463

== ENCOUNTER 2018-12-03 10:52 | Emergency (ER) | payer OTHER ==
--- OUTSIDE RECORDS SUMMARY | 2018-12-03 11:06 | XMS REPORT | Continuity of Care Document ---
:1985 External Reference #:[id number] Author Name Nurse Visit [facility] (transmitted by agent of provider Kristy Ron) Address [address] [place] [address] Care Team Providers Name Role Phone Deanne Ruth MD - Internal Medicine Care Team Information L[employer]er Problems Active Problems Provider Date Shoulder joint unstable Mamadou Huang MD Onset: 09/25/2016 Recurrent dislocation of shoulder region Filippo Rodriguez MD Onset: 10/16/2016 Bicipital tenosynovitis Filippo Rodriguez MD Onset: 11/13/2016 Sprain of shoulder Filippo Rodriguez MD Onset: 07/31/2018 Shoulder joint pain Filippo Rodriguez MD Onset: 07/31/2018 Social History Type Date Description Comments Sex Unknown ETOH Use Drinks 4 Alcoholic Beverages Per Week Tobacco Use Start: Unknown End: Patient is a former smoker Unknown Smoking Status Reviewed: 11/24/18 Patient is a former smoker Exercise Type/Frequency Exercises sporadically Exercise Type/Frequency Walks sporadically Exercise Type/Frequency Kayaking Exercise Type/Frequency Horseback riding Allergies, Adverse Reactions, Alerts Active Allergies Reaction Severity Comments Date Erythromycin Nausea and Vomiting 09/25/2016 Medications Active Medications SIG Qnty Indications Ordering Provider Date Depo-Provera every 10 weeks 1ml Sascha Monk MD 150mg/ml Suspension Seroquel half tablet once Unknown 25mg Tablets daily Medications Administered in Office Medication SIG Qnty Indications Ordering Provider Date Depo-Provera Pt Provided Vac Nurse Visit [facility] 11/27/2018 Injection Health Depo-Provera Pt Provided Vac Sascha Monk MD 09/19/2018 Injection Triamcinolone (Kenalog) Filippo Rodriguez MD 09/05/2018 Injection Immunizations Description No Information Available Vital Signs Date Vital Result Comment 11/27/2018 9:45am Height 63 inches 5'3" Heart Rate 60 /min BP Systolic 107 mmHg BP Diastolic 72 mmHg O2 % BldC Oximetry 100 % 11/24/2018 9:33am Height 63 inches 5'3" Weight 139.12 lb Heart Rate 59 /min BP Systolic 110 mmHg BP Diastolic 72 mmHg O2 % BldC Oximetry 99 % BMI (Body Mass Index) 24.6 kg/m2 Results Test Date Facility Test Result H/L Range Note Laboratory test 11/24/2018 [facility] HCG 0.90 mIU/mL [address] [place] [address] [phone] TSH (Thyroid Stim Horm) 1.17 mcIU/mL Normal 0.34-5.60 Laboratory test 11/24/2018 [facility] Cytology <pending> finding [address] [place] [address] [phone] Laboratory test 08/26/2018 [facility] Gardnerella/Yea SEE RESULT [address]: [place] [address] [phone] 1 <5.0 Negative 5.0 - 25.0 Indeterminate (Repeat testing recommended after 72 hours) >25.0 Positive Perimenopausal women can display HCG levels of up to 20 mIU/mL 2 SEE RESULT BELOW Name: WILSONZENAIDA : [address]: Sascha Monk MD Acct: [id number] Unit: [id number] AGE: 33 Location: [facility] Re08/26/18 SEX: F Status: REG REF SPEC: [id number] BLU: 08/26/[address] [facility] [address]: Sascha Monk MD REQ: [id number] RECD: 08/26/189752 STATUS: COMP _ SOURCE: VAGINAL SPDESC: ORDERED: Randee,Yeast DNA, Trich DNA COMMENTS: [id number] Would you like to order Trichomonas Vaginalis [...] CONTINUED ON NEXT PAGE DEPARTMENT OF PATHOLOGY, [address] [place] [address] Tam Oswald M.D. Director [facility] # [id number] Patient: ZENAIDA WILSON [id number] (Continued) Specimen: [id number] Collected: 08/26/18 Received: 08/26/18-1357 (Continued) Procedure Result Reported Site Trichomonas: Vaginal DNA Probe Final (continued) 08/27/18- 1113 The presence or absence of T. vaginalis cannot be used as a test for therapeutic success or failure. * ML - Main Lab . END OF REPORT DEPARTMENT OF PATHOLOGY, [address] [place] [address] Tam Oswald M.D. Director [facility] # [id number] Procedures Date Code Description Status 09/19/2018 16831 Admin Of Inj Completed 09/05/2018 92463 Inject Tendon Sheath Or Ligament Aponeurosis Eg Plantar Completed Fascia Medical Devices Description No Information Available Encounters Type Date Location Provider Dx Diagnosis Office Visit 09/05/2018 [facility] Filippo Rodriguez, S43.491D Other sprain of 9:45a at [place] right shoulder joint, subsequent encounter M25.511 Pain in right shoulder M75.21 Bicipital tendinitis, right shoulder Office Visit 08/26/2018 9:00a [facility] Sascha Monk, N76.1 Subacute and Clinic of [facility] at chronic vaginitis [place] N80.9 Endometriosis, unspecified N87.0 Mild cervical dysplasia Office Visit 08/08/2018 9:45a Jeremias Rodriguez S43.491D Other sprain of Orthopedics at right shoulder [place] joint, subsequent encounter Office Visit 07/31/2018 8:30a Jeremias Rodriguez S43.491A Other sprain of Orthopedics at right [facility] joint, initial encounter M25.511 Pain in right shoulder Assessments Date Code Description Provider 11/24/2018 N87.0 Mild cervical dysplasia Sascha Monk MD 11/24/2018 N92.6 Irregular menstruation, unspecified Sascha Monk MD 09/19/2018 Z30.42 Encounter for surveillance of injectable Sascha Monk MD contraceptive 09/05/2018 S43.491D Other sprain of right shoulder joint, Filippo Rodriguez MD subsequent encounter 09/05/2018 M25.511 Pain in right shoulder Filippo Rodriguez MD 09/05/2018 M75.21 Bicipital tendinitis, right shoulder Filippo Rodriguez MD 08/26/2018 N76.1 Subacute and chronic vaginitis Sascha Monk MD 08/26/2018 N80.9 Endometriosis, unspecified Sascha Monk MD 08/26/2018 N87.0 Mild cervical dysplasia Sascha Monk MD 08/08/2018 S43.491D Other sprain of right shoulder joint, Filippo Rodriguez MD subsequent encounter 07/31/2018 S43.491A Other sprain of right shoulder joint, initial Filippo Rodriguez MD encounter 07/31/2018 M25.511 Pain in right shoulder Filippo Rodriguez MD Plan of Treatment Future Appointment(s):02/05/2019 9:00 am - [facility]05/26/2019 9:00 am - Sascha Monk MD at [facility]11/24/2018 - Sascha Monk MDN87.0 Mild cervical dysplasiaFollow up:Plan Annual with Pap in 6 months. PLease call the office if you do not receive Pap result within 2 weeks.N92.6 Irregular menstruation, unspecified Functional Status Description No Information Available Mental Status Description No Information Available Referrals Description No Information Available
--- OUTSIDE RECORDS SUMMARY | 2018-12-03 11:06 | XMS REPORT | Continuity of Care Document ---
:1985 External Reference #:[id number] Author Name Sascha Monk MD (transmitted by agent of provider Kristy Baird) Address [address] [place] [address] Care Team Providers Name Role Phone Deanne Ruth MD - Internal Medicine Care Team Information [employer] Problems Active Problems Provider Date Shoulder joint [...] Available Vital Signs Date Vital Result Comment 11/24/2018 9:33am Height 63 inches 5'3" Weight 139.12 lb Heart Rate 59 /min BP Systolic 110 mmHg BP Diastolic 72 mmHg O2 % BldC Oximetry 99 % BMI (Body Mass Index) 24.6 kg/m2 09/05/2018 9:56am Height 63 inches 5'3" Weight 140.00 lb Heart Rate 56 /min BP Systolic 114 mmHg BP Diastolic 60 mmHg Pain Level 5 BMI (Body Mass Index) 24.8 kg/m2 Results Test Date Facility Test Result H/L Range Note Laboratory test 11/24/2018 [facility] Cytology <pending> finding [address] [place] [address] [phone] Laboratory test 08/26/2018 [facility] Gardnerella/Yea SEE RESULT [address]: [place] [address] [phone] 1 SEE RESULT BELOW Name: ZENAIDA WILSON : [address]: Sascha Monk MD Acct: [id number] Unit: [id number] AGE: 33 Location: [facility] Re08/26/18 SEX: F Status: REG REF SPEC: [id number] BLU: 08/26/180955 [facility] DR: Sascha Monk MD REQ: [id number] RECD: 08/26/186361 STATUS: COMP _ SOURCE: VAGINAL SPDESC: ORDERED: Randee,Yeast DNA, Trich DNA COMMENTS: [id number] Would you like to order Trichomonas Vaginalis [...] CONTINUED ON NEXT PAGE DEPARTMENT OF PATHOLOGY, [address] [place] [address] Tam Oswald M.D. Director [facility] # [id number] Patient: ZENAIDA WILSON [id number] (Continued) Specimen: [id number] Collected: 08/26/18 Received: 08/26/18 (Continued) Procedure Result Reported Site Trichomonas: Vaginal DNA Probe Final (continued) 08/27/18 1111 The presence or absence of T. vaginalis cannot be used as a test for therapeutic success or failure. * - Main Lab . END OF REPORT DEPARTMENT OF PATHOLOGY, [address] [place] [address] Tam Oswald M.D. Director [facility] # [id number] Procedures Date Code Description Status 09/19/2018 72894 Admin Of Inj Completed 09/05/2018 85049 Inject Tendon Sheath Or Ligament Aponeurosis Eg Plantar Completed Fascia Medical Devices Description No Information Available Encounters Type Date Location Provider Dx Diagnosis Office Visit 09/05/2018 [facility] Filippo Rodriguez, S43.491D Other sprain of 9:45a at [place] right shoulder joint, subsequent encounter M25.511 Pain in right shoulder M75.21 Bicipital tendinitis, right shoulder Office Visit 08/26/2018 9:00a [facility] Sascha Monk, N76.1 Subacute and [facility] of [employer] at chronic vaginitis [place] N80.9 Endometriosis, unspecified N87.0 Mild cervical dysplasia Office Visit 08/08/2018 9:45a Jeremias Rodriguez S43.491D Other sprain of Orthopedics at right shoulder [place] joint, subsequent encounter Office Visit 07/31/2018 8:30a Jeremias Rodriguez S43.491A Other sprain of Orthopedics at right shoulder [place] joint, initial encounter M25.511 Pain in right [...] Filippo Rodriguez MD Plan of Treatment Future Appointment(s):05/26/2019 9:00 am - Sascha Monk MD at [facility]11/27/2018 9:30 am - Nurse Visit [facility] at [facility]11/24/2018 - Sascha Monk MDN87.0 Mild cervical dysplasiaFollow up:Plan Annual with Pap in 6 months.N92.6 Irregular menstruation, unspecified Functional Status Description No Information Available Mental Status Description No Information Available Referrals Description No Information Available
--- NOTE | 2018-12-03 11:30 | ED ---
Upper Extremity Pain - HPI Summary HPI Summary: 33 year old F presenting to [facility] complains of right shoulder pain rated 6/10 in severity after injuring her right shoulder at work yesterday. Symptoms aggravated by movement of shoulder. Symptoms alleviated by nothing. States she went to [facility] yesterday where she had x-rays done which were negative. Pain is worse today. Trying OTC meds. Able to bend and lift right shoulder. Surgical hx: right shoulder/rotator cuff in [address] Rodriguez. States she has appointment with primary care provider 12/09/18. - History of Current Complaint Chief Complaint: EDShoulderCSean Stated Complaint: RT SHOULDER INJ PER PT Time Seen by Provider: 12/03/18 11:22 Hx Obtained From: Patient Hx Last Menstrual Period: 04/14/2018..on depo Onset/Duration: Started Days Ago - 1, Still Present Timing: Constant Severity Currently: Moderate - 6/10 Pain Location: Shoulder - right Aggravating Factor(s): Nothing Alleviating Factor(s): Nothing - Allergies/Home Medications Allergies/Adverse Reactions: Allergies Allergy/AdvReac Type Severity Reaction Status Date / Time erythromycin base AdvReac Vomiting Verified 10/01/18 10:50 PMH/Surg Hx/FS Hx/Imm Hx Endocrine/Hematology History: Denies: Hx Anticoagulant Therapy, Hx Diabetes, Hx Thyroid Disease Cardiovascular History: Denies: Hx Congestive Heart Failure, Hx Deep Vein Thrombosis, Hx Hypertension , Hx Myocardial Infarction, Hx Pacemaker/ICD Respiratory History: Denies: Hx Asthma, Hx Chronic Obstructive Pulmonary Disease (COPD), Hx Lung Cancer, Hx Pneumonia, Hx Pulmonary Embolism GI History: Denies: Hx Gall Bladder Disease, Hx Gastrointestinal Bleed, Hx Ulcer, Hx Urosepsis History: Reports: Other Problems/Disorders - endometriosis Denies: Hx Kidney Stones, Hx Renal Disease Sensory History: Denies: Hx Contacts or Glasses, Hx Hearing Aid Opthamlomology History: Denies: Hx Contacts or Glasses Neurological History: Denies: Hx Dementia, Hx Migraine, Hx Seizures, Hx Transient Ischemic Attacks (TIA) Psychiatric History: Denies: Hx Anxiety, Hx Depression, Hx Panic Disorder, Hx Schizophrenia, Hx Bipolar Disorder - Surgical History Surgery Procedure, Year, and Place: LEEP [place]. BILATERAL BREAST IMPLANTS [facility]. RIGHT SHOULDER 10/29/2016 Hx Anesthesia Reactions: No Infectious Disease History: No Infectious Disease History: Reports: Hx Shingles - treated Denies: Hx Clostridium Difficile, Hx Hepatitis, Hx Human Immunodeficiency Virus (HIV), Hx of Known/Suspected MRSA, Hx Tuberculosis, Hx Known/Suspected VRE , Hx Known/Suspected VRSA, History Other Infectious Disease, Traveled Outside the [place] in Last 30 Days - Family History Known Family History: Positive: Hypertension Negative: Cardiac Disease - Social History Alcohol Use: Occasionally Substance Use Type: Reports: None Hx Tobacco Use: Yes Smoking Status (MU): Former Smoker Type: Cigarettes Amount Used/How Often: 1 ppd Length of Time of Smoking/Using Tobacco: 10 years Have You Smoked in the Last Year: No Review of Systems Positive: Arthralgia, Decreased ROM All Other Systems Reviewed And Are Negative: Yes Physical Exam - Summary Physical Exam Summary: Constitutional: Well-developed, Well-nourished, Alert. (-) Distressed Skin: Warm, Dry, old scars to right anterior shoulder HENT: Normocephalic; Atraumatic Eyes: Conjunctiva normal Neck: Musculoskeletal ROM normal neck. (-) JVD, (-) Stridor, (-) Nuchal rigidity Cardio: Rhythm regular, rate normal, Heart sounds normal; Intact distal pulses; Radial pulses are 2+ and symmetric. (-) Murmur Pulmonary/Chest wall: Effort normal. (-) Respiratory distress, (-) Wheezes, (-) Rales Abd: Soft, (-) tenderness, (-) Distension, (-) Guarding, (-) Rebound Musculoskeletal: (-) Edema. Pain with abduction of right shoulder, no pain with supination, full ROM of elbow and wrist and hand on the right, strength 5/5, SILT, 2+ radial pulse, Lymph: (-) Cervical adenopathy Neuro: Alert, Oriented x3 Psych: Mood and affect Normal Triage Information Reviewed: Yes Vital Signs On Initial Exam: Initial Vitals Temp Pulse Resp BP Pulse Ox 98.0 F 77 16 132/79 100 12/03/18 10:54 12/03/18 10:54 12/03/18 10:54 12/03/18 10:54 12/03/18 10:54 Vital Signs Reviewed: Yes Procedures - Sedation Patient Received Moderate/Deep Sedation with Procedure: No Diagnostics - Vital Signs Vital Signs Temp Pulse Resp BP Pulse Ox 12/03/18 10:54 98.0 F 77 16 132/79 100 - Laboratory Lab Statement: Any lab studies that have been ordered have been reviewed, and results considered in the medical decision making process. Course/Dx - Course Course Of Treatment: 33 y/o F w hx of prior rotator cuff injury p/w shoulder pain after trauma. - PE w tenderness anteriory, full ROM. Needs MRI likely given hx rotator cuff surgery, can defer to outpatient. Has sling, advised to limit use 2/2 concern for frozen shoulder. - Diagnoses Provider Diagnoses: Right shoulder injury Discharge ED - Sign-Out/Discharge Documenting (check all that apply): Patient Departure - Discharge - Discharge Plan Condition: Stable Disposition: HOME Prescriptions: Cyclobenzaprine TAB* [Flexeril 10 MG TAB*] 10 mg PO TID PRN 4 Days #12 tab PRN Reason: Pain - Moderate Patient Education Materials: Rotator Cuff Injury (ED) Forms: *Work Release Referrals: Lolis Yang [Primary Care Provider] - Additional Instructions: You were seen in the emergency department for shoulder pain. Please follow up with your orthopedic surgeon for further workup. If any studies were not completed at the time of discharge you will be called with the relevant results. Please follow up with your primary care doctor in next 2-3 days and return to emergency department for worsening or concerning symptoms. It was a pleasure taking care of you today. - Billing Disposition and Condition Condition: STABLE Disposition: Home - Attestation Statements Document Initiated by Nay: Yes Documenting Scribe: Sheree Lim Provider For Whom Nay is Documenting (Include Credential): Maci Lam MD Scribe Attestation: I, Sheree Lim, scribed for Maci Lam MD on 12/03/18 at 1338. Scribe Documentation Reviewed: Yes Provider Attestation: The documentation as recorded by the Sheree leonardo accurately reflects the service I personally performed and the decisions made by , Maci Lam MD Status of Scribe Document: Viewed
[2018-12-03 12:12] VITALS: BP 120/61
== END 2018-12-03 11:52 | disposition home or self-care (01) ==
LOC: ED 10:52
DX: S49.91XA Unspecified injury of right shoulder and upper arm, initial encounter (principal); X58.XXXA Exposure to other specified factors, initial encounter; Y92.89 Other specified places as the place of occurrence of the external cause; Y99.0 Civilian activity done for income or pay; Z87.891 Personal history of nicotine dependence; Z79.899 Other long term (current) drug therapy; Z88.1 Allergy status to other antibiotic agents
CPT/HCPCS: 99282